=== PATIENT | male | born 1935 | race Caucasian/White ===

== ENCOUNTER 2016-06-08 08:54 | Inpatient (IN) | payer OTHER ==
[2016-06-08] MEDS ORDERED: ASPIRIN 325 MG TAB PO ONE (09:01)
[2016-06-08] MEDS ORDERED: NITROGLYCERINE 2 % OINTMENT PACK TOP ONE (09:01)
[2016-06-08] MEDS ORDERED: HYDROmorphone 1 MG INJECTION IV ONE (09:11)
[2016-06-08] MEDS: NITROGLYCERINE 0.4 MG TAB SL SCH ×2 (09:11→11:13)
[2016-06-08] MEDS ORDERED: MORPHINE 4 MG/ML INJECTION IV ONE (09:23)
[2016-06-08 09:30] LABS: AUTOMATED BASOPHIL 0.8 % (0-2); AUTOMATED EOSINOPHIL 6.1 % (0-5); AUTOMATED LYMPH 20.6 % (17-44); AUTOMATED NEUTROPHIL 62.5 % (45-76); MPV 9.8 fL (7.4-10.4)
[2016-06-08 09:38] LABS: CPK (TOTAL ONLY) 90 IU/L (55-170)
[2016-06-08 09:41] LABS: CALC CORRECTED 9.3 MG/DL (8.4-10.2); CALCIUM 8.8 MG/DL (8.4-10.2); CREATININE 2.4 MG/DL (0.66-1.25); TOTAL PROTEIN 6.2 G/DL (6.3-8.2)
--- NOTE | 2016-06-08 09:44 | EDPRACDOC ---
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 PT HAS SIGNIFICANT CARDIAC HISTORY INCLUDING CABG X 3 AND STENT X 2, PER PIECE OF PAPER PT BROUGHT WITH HIM. PT POOR HISTORIAN AND ARRIVED VIA EMS, SO HPI/PMH DIFFICULT. FAMILY SHOULD ARRIVE SOON. PT DENIES ANY SYMPTOMS NOW AND STATES THAT HIS PAIN WAS RELIEVED AT HOME WITH 1 NITRO. Chest Pain Location: Reports: Substernal Pain Radiation: Reports: None Symptoms Occur: Reports: Suddenly Cardiac Risk Factors: Reports: Hyperlipidemia, Hypertension, Diabetes Cardiac History of: Reports: [place], Stress Test, CABG, Other (PACEMAKER) PE Risk Factors: Reports: None Medications within 24 Hours: Reports: Nitro Prehospital Care: Reports: Monitor Pain Status: No Pain Pain Description: Reports: Sharp, Stabbing Pain Severity: Severe Pain Worsens With: Reports: Nothing Pain Improves With: Reports: Nothing Associated Signs and Symptoms: Reports: None <Justina Maciel - Last Filed: 06/08/16 10:12> - General Information Chief Complaint: Chest Pain Stated Complaint: CHEST PAIN Time Seen by Provider: 06/08/16 08:56 Home Medications: Home Medications Finasteride [Proscar] 5 mg PO DAILY 09/02/12 Nitroglycerin [Nitrostat] 0.4 mg SL Q5M PRN 09/02/12 Oxycodone Immediate Release [Oxycodone Immediate Release (OxyIR)] 5 - 10 mg PO Q6H PRN 03/03/13 Tamsulosin HCl [Flomax] 0.4 mg PO DAILY 03/03/13 Furosemide [Lasix] 80 mg PO BID 03/25/13 HydrALAZINE (Cardiovascular) [Apresoline] 25 mg PO BID 03/25/13 Insulin Glargine,Hum.rec.anlog [Lantus] 50 units SQ HS 03/25/13 Isosorbide Mononitrate [Imdur] 30 mg PO DAILY 03/25/13 Allopurinol [Zyloprim] 100 mg PO BID 04/27/13 Colchicine [Colcrys] 0.3 mg PO DAILY 04/27/13 Gabapentin [Neurontin] 600 mg PO TID 04/27/13 Levetiracetam [Keppra] 500 mg PO BID 30 Days 04/27/13 Omeprazole [Prilosec] 20 mg PO DAILY 04/27/13 Simvastatin [Zocor] 40 mg PO HS 04/27/13 Artificial Tears 1 drop OU TID 07/12/15 Butalbital/Acetaminophen [Bupap 50 mg-300 mg Tablet] 1 - 2 tab PO Q4H PRN Cyclobenzaprine HCl [Flexeril] 10 mg PO Q6H PRN 07/12/15 Humalog Mix 75/25 0 units SQ .SLIDING SCALE 07/12/15 Loratadine [Claritin] 10 mg PO DAILY 07/12/15 Lorazepam [Lorazepam Intensol] 1 mg PO Q4H PRN 07/12/15 Nut.tx.gluc.intoler,Lac-Fr,Soy [Glucerna 1.2 Deandre] 237 ml PO DAILY PRN 07/12/15 Ondansetron HCl [Zofran] 4 - 8 mg PO Q6H PRN 07/12/15 Promethazine HCl 25 mg PO Q6H PRN 07/12/15 Amlodipine [Norvasc] 2.5 mg PO DAILY 06/08/16 Ketoconazole [Nizoral] 1 gm TOP DAILY 06/08/16 Allergies/Adverse Reactions: Allergies Allergy/AdvReac Type Severity Reaction Status Date / Time Penicillins Allergy Unknown Verified 06/08/16 09:08 ED Past Medical History - History Reviewed Yes Nurses notes reviewed and agree except as marked - Patient Medical History Neurological History: Reports: Cerebrovascular Accident (2013, hemorrhagic w/ seizures), Dementia Cardiac History: Reports: Coronary Artery Disease, Atrial Fibrillation, Hypertension, Congestive Heart Failure, Heart Attack (x2 2003), Hypercholesterolemia, Cardiomyopathy Respiratory History: Reports: Pneumonia GI/ History: Reports: Renal Failure, Urinary Tract Infection, Gastroesophageal Reflux Psychological History: Reports: Depression Systemic History: Reports: Diabetes (INSULIN DEPENDANT). Denies: Cancer Surgical History: Reports: Tonsillectomy/Adnoidectomy - Family Medical History Reports: Cancer (FATHER), Stroke (MOTHER), Cardiac Disorders (FATHER, SIBLINGS) - Social Medical History Smoking Status: Never smoker <Justina Maciel - Last Filed: 06/08/16 10:12> EDM Review of Systems - Review of Systems ROS Negative Except as Marked: Yes All systems reviewed and were negative except as marked ROS Unobtainable: Yes Hx Limited due to age/level of understanding of patient Constitutional: No Symptoms Reported Respiratory: No Symptoms Reported Cardiovascular: Chest Pain Gastrointestinal: No Symptoms Reported Neurological: No Symptoms Reported Musculoskeletal: No Symptoms Reported Integumentary: No Symptoms Reported <Justina Maciel - Last Filed: 06/08/16 10:12> - Physical Exam Last recorded Vital Signs: Last Vital Signs Temp 97.9 F 06/08/16 09:04 Pulse 124 H 06/08/16 09:19 Resp 20 06/08/16 09:19 BP 144/60 06/08/16 09:19 Pulse Ox 95 06/08/16 09:19 Oxygen Pulse Oxygen Saturation 95 O2 Device Room Air Oxygen Flow Rate Fraction of Inspired Oxygen ( FIO2) <Zahida Botello - Last Filed: 06/08/16 10:06> - Physical Exam Constitutional: Alert, Distress Oriented to: Time, Person, Place Last recorded Vital Signs: Last Vital Signs Temp 97.9 F 06/08/16 09:04 Pulse 124 H 06/08/16 09:19 Resp 20 06/08/16 09:19 BP 144/60 06/08/16 09:19 Pulse Ox 95 06/08/16 09:19 Oxygen Pulse Oxygen Saturation 95 O2 Device Room Air Oxygen Flow Rate Fraction of Inspired Oxygen ( FIO2) - HEENT Head: Normal Eye Exam: Normal Neck: Normal, Denies Pain, Midline - Respiratory/Cardiovascular Respiratory: Normal - CTA Cardiovascular: Tachycardia - GI Palpation: Normal Tenderness: Non tender - Musculoskeletal Back: Normal Extremities: Normal - Integumentary Skin: Normal Lymphatics: Normal - Neurologic Cerebellar: Unable to Test Mood Description: Anxious, Appropriate Thought: Coherent <Justina Maciel - Last Filed: 06/08/16 10:12> ED Chest Pain Exam - Respiratory/Cardiovascular Respiratory: Normal - CTA Cardiovascular/Chest: Normal Chest Palpation: Normal <Justina Maciel - Last Filed: 06/08/16 10:12> - Results 06/08/16 09:15 06/08/16 09:15 WBC 5.8 xk/uL (3.8-10.8) 06/08/16 09:15 RBC 4.12 xM/uL (4.70-6.10) L 06/08/16 09:15 Hgb 13.2 g/dL (14.0-18.0) L 06/08/16 09:15 Hct 38.6 % (42-52) L 06/08/16 09:15 MCV 94 fL (80-94) 06/08/16 09:15 MCH 32.1 pg (27-32) H 06/08/16 09:15 MCHC 34.3 g/dl (33-36) 06/08/16 09:15 RDW 14.8 % (11.5-14.5) H 06/08/16 09:15 Plt Count 134 xk/uL (130-400) 06/08/16 09:15 MPV 9.8 fL (7.4-10.4) 06/08/16 09:15 Neut % (Auto) 62.5 % (45-76) 06/08/16 09:15 Lymph % (Auto) 20.6 % (17-44) 06/08/16 09:15 Gl[place]ock % (Auto) 10.0 % (3-10) 06/08/16 09:15 Eos % (Auto) 6.1 % (0-5) H 06/08/16 09:15 Baso % (Auto) 0.8 % (0-2) 06/08/16 09:15 Absolute Neuts (auto) 3.60 xk/uL (1.7-8.2) 06/08/16 09:15 Absolute Lymphs (auto) 1.16 xk/uL (0.65-4.75) 06/08/16 09:15 PT 10.8 SEC (9.2-11.2) 06/08/16 09:15 INR 1.1 06/08/16 09:15 APTT 23.6 SEC (22-35) 06/08/16 09:15 Sodium 141 mEq/L (137-146) 06/08/16 09:15 Potassium 3.5 mEq/L (3.5-5.1) 06/08/16 09:15 Chloride 100 mEq/L (98-107) 06/08/16 09:15 Carbon Dioxide 27 mMOL/L (22-33) 06/08/16 09:15 Anion Gap 18 mEq/L (8-16) H 06/08/16 09:15 BUN 32 MG/DL (9-20) H 06/08/16 09:15 Creatinine 2.40 MG/DL (0.66-1.25) H 06/08/16 09:15 Estimated GFR (MDRD) 26 mL/min (>=60) L 06/08/16 09:15 Glucose 76 MG/DL (70-99) 06/08/16 09:15 Calculated Osmolality 277 MOs/Kg (270-290) 06/08/16 09:15 Calcium 8.8 MG/DL (8.4-10.2) 06/08/16 09:15 Corrected Calcium 9.3 MG/DL (8.4-10.2) 06/08/16 09:15 Total Bilirubin 0.7 MG/DL (0.2-1.3) 06/08/16 09:15 AST 24 IU/L (17-59) 06/08/16 09:15 ALT 31 IU/L (21-72) 06/08/16 09:15 Alkaline Phosphatase 72 IU/L (50-160) 06/08/16 09:15 Total Creatine Kinase 90 IU/L (55-170) 06/08/16 09:15 Troponin I 0.15 ng/mL (<.04) 06/08/16 09:15 Vkj-F-Eszhavbkovg Pept 3800 pg/mL (0-1800) H 06/08/16 09:15 Total Protein 6.2 G/DL (6.3-8.2) L 06/08/16 09:15 Albumin 3.5 G/DL (3.5-5.0) 06/08/16 09:15 Lab Results 06/08/16 06/08/16 06/08/16 09:15 09:15 09:15 WBC 5.8 RBC 4.12 L Hgb 13.2 L Hct 38.6 L MCV 94 MCH 32.1 H MCHC 34.3 RDW 14.8 H Plt Count 134 MPV 9.8 Neut % (Auto) 62.5 Lymph % (Auto) 20.6 Glascock % (Auto) 10.0 Eos % (Auto) 6.1 H Baso % (Auto) 0.8 Absolute Neuts (auto) 3.60 Absolute Lymphs (auto) 1.16 PT 10.8 INR 1.1 APTT 23.6 Sodium Potassium Chloride Carbon Dioxide Anion Gap BUN Creatinine Estimated GFR (MDRD) Glucose Calculated Osmolality Calcium Corrected Calcium Total Bilirubin AST ALT Alkaline Phosphatase Total Creatine Kinase 90 Troponin I Bte-M-Ypibicakgdo Pept 3800 H Total Protein Albumin 06/08/16 09:15 WBC RBC Hgb Hct MCV MCH MCHC RDW Plt Count MPV Neut % (Auto) Lymph % (Auto) [place]asc[place] % (Auto) Eos % (Auto) Baso % (Auto) Absolute Neuts (auto) Absolute Lymphs (auto) PT INR APTT Sodium 141 Potassium 3.5 Chloride 100 Carbon Dioxide 27 Anion Gap 18 H BUN 32 H Creatinine 2.40 H Estimated GFR (MDRD) 26 L Glucose 76 Calculated Osmolality 277 Calcium 8.8 Corrected Calcium 9.3 Total Bilirubin 0.7 AST 24 ALT 31 Alkaline Phosphatase 72 Total Creatine Kinase Troponin I 0.15 Aeh-G-Dvjthrysvnu Pept Total Protein 6.2 L Albumin 3.5 Laboratory Results - last 24 hr 06/08/16 06/08/16 06/08/16 09:15 09:15 09:15 WBC 5.8 RBC 4.12 L Hgb 13.2 L Hct 38.6 L MCV 94 MCH 32.1 H MCHC 34.3 RDW 14.8 H Plt Count 134 MPV 9.8 Neut % (Auto) 62.5 Lymph % (Auto) 20.6 [place] % (Auto) 10.0 Eos % (Auto) 6.1 H Baso % (Auto) 0.8 Absolute Neuts (auto) 3.60 Absolute Lymphs (auto) 1.16 PT 10.8 INR 1.1 APTT 23.6 Sodium 141 Potassium 3.5 Chloride 100 Carbon Dioxide 27 Anion Gap 18 H BUN 32 H Creatinine 2.40 H Estimated GFR (MDRD) 26 L Glucose 76 Calculated Osmolality 277 Calcium 8.8 Corrected Calcium 9.3 Total Bilirubin 0.7 AST 24 ALT 31 Alkaline Phosphatase 72 Total Creatine Kinase Troponin I 0.15 Ufk-A-Wbjgwakbqub Pept Total Protein 6.2 L Albumin 3.5 06/08/16 09:15 WBC RBC Hgb Hct MCV MCH MCHC RDW Plt Count MPV Neut % (Auto) Lymph % (Auto) [place] % (Auto) Eos % (Auto) Baso % (Auto) Absolute Neuts (auto) Absolute Lymphs (auto) PT INR APTT Sodium Potassium Chloride Carbon Dioxide Anion Gap BUN Creatinine Estimated GFR (MDRD) Glucose Calculated Osmolality Calcium Corrected Calcium Total Bilirubin AST ALT Alkaline Phosphatase Total Creatine Kinase 90 Troponin I Asq-J-Kfbqkaoakjq Pept 3800 H Total Protein Albumin Laboratory Results 06/08/16 09:15 06/08/16 09:15 <Zahida Botello - Last Filed: 06/08/16 10:06> - Action ASA given in the ED: No Aspirin therapy held due to: Other-specify below* (PT REFUSED ASA, DESPITE SEVERAL ATTEMPTS OF ENCOURAGEMENT; STATES "[place] SAID IT WAS BAD FOR MY HEART") - Results 06/08/16 09:15 06/08/16 09:15 WBC 5.8 xk/uL (3.8-10.8) 06/08/16 09:15 RBC 4.12 xM/uL (4.70-6.10) L 06/08/16 09:15 Hgb 13.2 g/dL (14.0-18.0) L 06/08/16 09:15 Hct 38.6 % (42-52) L 06/08/16 09:15 MCV 94 fL (80-94) 06/08/16 09:15 MCH 32.1 pg (27-32) H 06/08/16 09:15 MCHC 34.3 g/dl (33-36) 06/08/16 09:15 RDW 14.8 % (11.5-14.5) H 06/08/16 09:15 Plt Count 134 xk/uL (130-400) 06/08/16 09:15 MPV 9.8 fL (7.4-10.4) 06/08/16 09:15 Neut % (Auto) 62.5 % (45-76) 06/08/16 09:15 Lymph % (Auto) 20.6 % (17-44) 06/08/16 09:15 [place]ock % (Auto) 10.0 % (3-10) 06/08/16 09:15 Eos % (Auto) 6.1 % (0-5) H 06/08/16 09:15 Baso % (Auto) 0.8 % (0-2) 06/08/16 09:15 Absolute Neuts (auto) 3.60 xk/uL (1.7-8.2) 06/08/16 09:15 Absolute Lymphs (auto) 1.16 xk/uL (0.65-4.75) 06/08/16 09:15 Sodium 141 mEq/L (137-146) 06/08/16 09:15 Potassium 3.5 mEq/L (3.5-5.1) 06/08/16 09:15 Chloride 100 mEq/L (98-107) 06/08/16 09:15 Carbon Dioxide 27 mMOL/L (22-33) 06/08/16 09:15 Anion Gap 18 mEq/L (8-16) H 06/08/16 09:15 BUN 32 MG/DL (9-20) H 06/08/16 09:15 Creatinine 2.40 MG/DL (0.66-1.25) H 06/08/16 09:15 Estimated GFR (MDRD) 26 mL/min (>=60) L 06/08/16 09:15 Glucose 76 MG/DL (70-99) 06/08/16 09:15 Calculated Osmolality 277 MOs/Kg (270-290) 06/08/16 09:15 Calcium 8.8 MG/DL (8.4-10.2) 06/08/16 09:15 Corrected Calcium 9.3 MG/DL (8.4-10.2) 06/08/16 09:15 Total Bilirubin 0.7 MG/DL (0.2-1.3) 06/08/16 09:15 AST 24 IU/L (17-59) 06/08/16 09:15 ALT 31 IU/L (21-72) 06/08/16 09:15 Alkaline Phosphatase 72 IU/L (50-160) 06/08/16 09:15 Total Creatine Kinase 90 IU/L (55-170) 06/08/16 09:15 Total Protein 6.2 G/DL (6.3-8.2) L 06/08/16 09:15 Albumin 3.5 G/DL (3.5-5.0) 06/08/16 09:15 Lab Results 06/08/16 06/08/16 06/08/16 09:15 09:15 09:15 WBC 5.8 RBC 4.12 L Hgb 13.2 L Hct 38.6 L MCV 94 MCH 32.1 H MCHC 34.3 RDW 14.8 H Plt Count 134 MPV 9.8 Neut % (Auto) 62.5 Lymph % (Auto) 20.6 [place]ascock % (Auto) 10.0 Eos % (Auto) 6.1 H Baso % (Auto) 0.8 Absolute Neuts (auto) 3.60 Absolute Lymphs (auto) 1.16 Sodium 141 Potassium 3.5 Chloride 100 Carbon Dioxide 27 Anion Gap 18 H BUN 32 H Creatinine 2.40 H Estimated GFR (MDRD) 26 L Glucose 76 Calculated Osmolality 277 Calcium 8.8 Corrected Calcium 9.3 Total Bilirubin 0.7 AST 24 ALT 31 Alkaline Phosphatase 72 Total Creatine Kinase 90 Total Protein 6.2 L Albumin 3.5 Laboratory Results - last 24 hr 06/08/16 06/08/16 06/08/16 09:15 09:15 09:15 WBC 5.8 RBC 4.12 L Hgb 13.2 L Hct 38.6 L MCV 94 MCH 32.1 H MCHC 34.3 RDW 14.8 H Plt Count 134 MPV 9.8 Neut % (Auto) 62.5 Lymph % (Auto) 20.6 [place]ock % (Auto) 10.0 Eos % (Auto) 6.1 H Baso % (Auto) 0.8 Absolute Neuts (auto) 3.60 Absolute Lymphs (auto) 1.16 Sodium 141 Potassium 3.5 Chloride 100 Carbon Dioxide 27 Anion Gap 18 H BUN 32 H Creatinine 2.40 H Estimated GFR (MDRD) 26 L Glucose 76 Calculated Osmolality 277 Calcium 8.8 Corrected Calcium 9.3 Total Bilirubin 0.7 AST 24 ALT 31 Alkaline Phosphatase 72 Total Creatine Kinase 90 Total Protein 6.2 L Albumin 3.5 Laboratory Results 06/08/16 09:15 06/08/16 09:15 - EKG EKG #1 EKG Time: 09:00 -: Yes EKG interpreted by me Rate: bpm: 117 [place]: Normal Rhythm: Afib Block: None Hypertrophy: None ST: Normal Comparison: 12/02/15 <Justina Maciel - Last Filed: 06/08/16 10:12> - Departure Yes I personally saw and evaluated the patient. Disposition: Admit IP To This Hospital Education/Counseling Given To: Patient Education/Counseling Given Regarding: Diagnosis, Treatment Decision to Admit Time: 10:07 Decision to admit date: 12/30/16 Decision to admit: from ED - Physician Consulted Hospitalist Provider Called: James Ghosh <Zahida Botello - Last Filed: 06/08/16 10:06> - Departure Disposition: Admit IP To This Hospital <Justina Maciel - Last Filed: 06/08/16 10:12> - Departure Condition: Fair Final Diagnosis: Acute coronary syndrome, CRI (chronic renal insufficiency), [place] troponin Instructions: Chest Pain (ED) Referrals: [facility] [Primary Care Provider] - One Week
[2016-06-08 09:56] LABS: PARTIAL THROMB. TIME 23.6 SEC (22-35); PT-INR 1.1
--- NOTE | 2016-06-08 10:05 | DIRPT ---
CLINICAL DATA: Chest pain and shortness of Breath EXAM: PORTABLE CHEST - 1 VIEW COMPARISON: 12/02/2015 FINDINGS: Cardiac shadow is stable. Postoperative changes are again seen. A defibrillator is noted. Lungs are well aerated bilaterally. Some minimal atelectatic changes are noted in the right lung base. No focal confluent infiltrate is seen. IMPRESSION: Minimal right basilar atelectasis. Electronically Signed By: Danielito Cooley M.D. On: 06/08/2016 10:02
--- NOTE | 2016-06-08 10:22 | HISTPHYS ---
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 PT HAS SIGNIFICANT CARDIAC HISTORY INCLUDING CABG X 3 AND STENT X 2, PER PIECE OF PAPER PT BROUGHT WITH HIM. PT POOR HISTORIAN AND ARRIVED VIA EMS, SO HPI/PMH DIFFICULT. FAMILY SHOULD ARRIVE SOON. PT DENIES ANY SYMPTOMS NOW AND STATES THAT HIS PAIN WAS RELIEVED AT HOME WITH 1 NITRO. Chest Pain Location: Reports: Substernal Pain Radiation: Reports: None Symptoms Occur: Reports: Suddenly Cardiac Risk Factors: Reports: Hyperlipidemia, Hypertension, Diabetes Cardiac History of: Reports: [place], Stress Test, CABG, Other (PACEMAKER) PE Risk Factors: Reports: None Medications within 24 Hours: Reports: Nitro Prehospital Care: Reports: Monitor Pain Status: No Pain Pain Description: Reports: Sharp, Stabbing Pain Severity: Severe Pain Worsens With: Reports: Nothing Pain Improves With: Reports: Nothing Associated Signs and Symptoms: Reports: None - Medical History Cardiac History: Reports: Coronary Artery Disease, Atrial Fibrillation, Hypertension, Congestive Heart Failure, Heart Attack (x2 2003), Hypercholesterolemia, Internal Defibrillator, Cardiomyopathy, Other (PAD) Respiratory History: Reports: Pneumonia GI/ History: Reports: Renal Failure (Chronic), Urinary Tract Infection, Gastroesophageal Reflux, BPH Systemic History: Reports: Diabetes (INSULIN DEPENDANT). Denies: Cancer Neurological History: Reports: Cerebrovascular Accident (2013, hemorrhagic w/ seizures), Dementia Psychological History: Reports: Depression - Surgical History Reports: CABG, Tonsillectomy/Adnoidectomy, Other (Pacemaker/AICD implantation) - Medictions/Allergies Allergies Penicillins Allergy (Verified 06/08/16 09:08) Unknown told not to ever take it Current Medication List: Reviewed Home Medications Finasteride [Proscar] 5 mg PO DAILY 09/02/12 Nitroglycerin [Nitrostat] 0.4 mg SL Q5M PRN 09/02/12 Oxycodone Immediate Release [Oxycodone Immediate Release (OxyIR)] 5 - 10 mg PO Q6H PRN 03/03/13 Tamsulosin HCl [Flomax] 0.4 mg PO DAILY 03/03/13 Furosemide [Lasix] 80 mg PO BID 03/25/13 HydrALAZINE (Cardiovascular) [Apresoline] 25 mg PO BID 03/25/13 Insulin Glargine,Hum.rec.anlog [Lantus] 50 units SQ HS 03/25/13 Isosorbide Mononitrate [Imdur] 30 mg PO DAILY 03/25/13 Allopurinol [Zyloprim] 100 mg PO BID 04/27/13 Colchicine [Colcrys] 0.3 mg PO DAILY 04/27/13 Gabapentin [Neurontin] 600 mg PO TID 04/27/13 Levetiracetam [Keppra] 500 mg PO BID 30 Days 04/27/13 Omeprazole [Prilosec] 20 mg PO DAILY 04/27/13 Simvastatin [Zocor] 40 mg PO HS 04/27/13 Artificial Tears 1 drop OU TID 07/12/15 Butalbital/Acetaminophen [Bupap 50 mg-300 mg Tablet] 1 - 2 tab PO Q4H PRN Cyclobenzaprine HCl [Flexeril] 10 mg PO Q6H PRN 07/12/15 Humalog Mix 75/25 0 units SQ .SLIDING SCALE 07/12/15 Loratadine [Claritin] 10 mg PO DAILY 07/12/15 Lorazepam [Lorazepam Intensol] 1 mg PO Q4H PRN 07/12/15 Nut.tx.gluc.intoler,Lac-Fr,Soy [Glucerna 1.2 Deandre] 237 ml PO DAILY PRN 07/12/15 Ondansetron HCl [Zofran] 4 - 8 mg PO Q6H PRN 07/12/15 Promethazine HCl 25 mg PO Q6H PRN 07/12/15 Amlodipine [Norvasc] 2.5 mg PO DAILY 06/08/16 Ketoconazole [Nizoral] 1 gm TOP DAILY 06/08/16 - Family History Reports: Cancer (FATHER), Stroke (MOTHER), Cardiac Disorders (FATHER, SIBLINGS) - Social History Travel Outside of [place] in the Last 3 Months?: No Smoking Status: Never smoker Social History: Denies: Alcohol Use - Review of Systems Yes Review of systems cannot be obtained due to the patient's medical condition Constitutional: No Symptoms Reported - Eyes No Symptoms Reported (No blurry vision, visual changes, eye pain, or eye redness.) - Ears No Symptoms Reported (No ear pain or discharge) - Nose No Symptoms Reported (No nasal discharge/congestion or bleeding) - Mouth Mouth: No Symptoms Reported (No oropharyngeal lesions or erythema) - Throat/Neck No Symptoms Reported (No throat pain or swelling.No oropharyngeal lesions or erythema.) - Respiratory No Symptoms Reported (No cough, wheezing, or shortness of breath.) - Cardiovascular No Symptoms Reported (No chest pain or palpitations.) - Neurological No Symptoms Reported (No headache, dizziness, seizures, or focal weakness.) - Integumentary No Symptoms Reported (no rashes or lesions) - Allergic/Immunologic No Symptoms Reported (no rashes or lesions) - Hematologic No Symptoms Reported (No chronic anemia, bleeding, or easy bruising.) - Endocrine No Symptoms Reported (No thyroid issues, polyuria, or polydipsia.) - Psychiatric No Symptoms Reported (Fully oriented, with normal and appropriate affect.) - Physical Exam Constitutional: Alert, Distress Oriented to: Time, Person, Place Exam: Last Vital Signs Temp 97.9 F 06/08/16 09:04 Pulse 124 H 06/08/16 09:19 Resp 20 06/08/16 09:19 BP 144/60 06/08/16 09:19 Pulse Ox 95 06/08/16 09:19 Intake & Output 06/07/16 06/08/16 06/08/16 23:59 07:59 15:59 Patient's weight 200 lb - HEENT Head: Normal Eye: Normal Oropharynx: Normal (Pharynx: Moist without exudate,Gums-no swelling, No oropharyngeal lesions or erythema, Mucous membranes are dry.) Tympanic Membrane: Normal (No discharge) ENT EAC: Normal (No oropharyngeal lesions or erythema. Mucous membranes are dry. ) TMJ: Normal Nose: No Symptoms Reported (Nares patent, without discharge or bleeding.) - Respiratory/Cardiovascular Respiratory: Normal - CTA Cardiovascular: Normal (RRR , Normal S1, S2. No murmurs, rubs, or gallops. PMI non-displaced. Carotids: no carotid bruits. No bradycardia or tachycardia. DP pulses 2+ bilaterally.) - GI Auscultation: Normal (NABS) Palpation: Normal Tenderness: Non tender Chou's Sign: Negative - Musculoskeletal Back: Normal Extremities: Normal - Integumentary Skin: Normal Lymphatics: Normal - Neurologic Memory Impaired: Normal Motor Function: Normal (Motor 5/5 throughout. Normal tone, Pulses 2+ No cyanosis or edema, FROM) Cranial Nerve: Normal (CN II-XXII intact sensation, strength 5/5) Cerebellar: Unable to Test Mood Description: Anxious, Appropriate Thought: Coherent Perception: Normal (Normal and appropriate affect) - Focused CV Perfusion Exam Vital Signs: Last Vital Signs Temp 97.9 F 06/08/16 09:04 Pulse 124 H 06/08/16 09:19 Resp 20 06/08/16 09:19 BP 144/60 06/08/16 09:19 Pulse Ox 95 06/08/16 09:19 - Lab Results 06/08/16 09:15 06/08/16 09:15 Laboratory Tests 06/08/16 06/08/16 06/08/16 09:15 09:15 09:15 INR 1.1 Troponin I 0.15 Wux-H-Bwccyyrjyll Pept 3800 H Laboratory Tests 07/12/15 10/20/15 12/02/15 12:10 11:22 10:45 Creatinine 2.20 H 1.90 H 2.10 H 04/24/16 05/07/16 06/08/16 14:07 10:47 09:15 Creatinine 2.70 H 2.60 H 2.40 H PORTABLE CHEST - 1 VIEW COMPARISON: 12/02/2015 FINDINGS: Cardiac shadow is stable. Postoperative changes are again seen. A defibrillator is noted. Lungs are well aerated bilaterally. Some minimal atelectatic changes are noted in the right lung base. No focal confluent infiltrate is seen. IMPRESSION: Minimal right basilar atelectasis. Echocardiogram 03/16/2013 LV size normal with severe concentric LVH EF between 20 and 25% Moderately dilated left atrium - Assessment (1) Acute coronary syndrome I24.9 - ACUTE ISCHEMIC HEART DISEASE, UNSPECIFIED Acute (2) CRI (chronic renal insufficiency) N18.9 - CHRONIC KIDNEY DISEASE, UNSPECIFIED Chronic (3) CAD (coronary artery disease) I25.10 - ATHSCL HEART DISEASE OF [place] CORONARY ARTERY W/O ANG PCTRS Acute (4) Acute on chronic kidney failure N17.9 - ACUTE KIDNEY FAILURE, UNSPECIFIED; N18.9 - CHRONIC KIDNEY DISEASE, UNSPECIFIED Acute (5) Atrial fibrillation I48.91 - UNSPECIFIED ATRIAL FIBRILLATION Chronic (6) Cardiomyopathy I42.9 - CARDIOMYOPATHY, UNSPECIFIED Chronic (7) ICD (implantable cardioverter-defibrillator) in place Z95.810 - PRESENCE OF AUTOMATIC (IMPLANTABLE) CARDIAC DEFIBRILLATOR Chronic (8) 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
[2016-06-08 10:48] LABS: LEUKOCYTES/URINE NEG (NEGATIVE); NITRITE/URINE NEG (NEGATIVE); URINE OCCULT BLOOD 3+ (NEG/TRACE)
[2016-06-08] MEDS ORDERED: NITROGLYCERINE 0.4 MG TAB SL PRN (10:57)
[2016-06-08] MEDS ORDERED: MORPHINE 2 MG/ML INJECTION IV PRN (10:58)
[2016-06-08] MEDS ORDERED: Pharmacy Order Set Alert SCH ×2 (11:00)
[2016-06-08] MEDS ORDERED: Enoxaparin 1 mg per kg per dose SQ SCH (11:00)
[2016-06-08 11:07] LABS: RBC/URINE 40-50 (0-2)
[2016-06-08] MEDS ORDERED: ALBUTEROL 0.083% 3 ML NEB NEB PRN (11:11)
[2016-06-08] MEDS ORDERED: SODIUM CHLORIDE 0.9% 3 ML FLUSH FLUSH PRN (11:11)
[2016-06-08] MEDS ORDERED: GLUCOSE (ORAL GEL) 15 GM TUBE PO PRN (11:11)
[2016-06-08] MEDS ORDERED: GLUCAGON 1 MG VIAL SQ PRN (11:11)
[2016-06-08] MEDS ORDERED: DEXTROSE 25 GM/50 ML PFS IV PRN (11:11)
[2016-06-08] MEDS ORDERED: LORAZEPAM 1 MG PO PRN (11:13)
[2016-06-08] MEDS ORDERED: CYCLOBENZAPRINE 10 MG TAB PO PRN (11:13)
[2016-06-08] MEDS ORDERED: BUTALBITAL PO PRN (11:13)
[2016-06-08] MEDS ORDERED: Non-Formulary Medication ITEM (Ondansetron Hcl [Zofran] 4 MG) PO PRN (11:13)
[2016-06-08] MEDS ORDERED: GLUCERNA VANILLA PO PRN (11:13)
[2016-06-08] MEDS ORDERED: ACETAMINOPHEN PO PRN (11:13)
[2016-06-08] MEDS ORDERED: OXYCODONE HCL 5 MG TABLET PO PRN (11:13)
[2016-06-08] MEDS ORDERED: [UNRECOGNIZED DRUG - OTHER] PO PRN (11:13)
[2016-06-08] MEDS ORDERED: METOPROLOL TARTRATE 25 MG TAB ONE (11:19)
[2016-06-08] MEDS ORDERED: PROMETHAZINE 25 MG/ML VIAL IV PRN (11:19)
[2016-06-08] MEDS ORDERED: Aluminum;Magnesium;Simethicone 30 ML UDC PO PRN (11:19)
[2016-06-08] MEDS ORDERED: MAGNESIUM HYDROXIDE 30 ML BOTTLE PO PRN (11:19)
[2016-06-08] MEDS ORDERED: ACETAMINOPHEN 325 MG/TAB TABLET PO PRN (11:19)
[2016-06-08] MEDS ORDERED: BISACODYL 10 MG SUPP PR PRN (11:19)
[2016-06-08] MEDS ORDERED: ACETAMINOPHEN 650 MG SUPP PR PRN (11:19)
[2016-06-08] MEDS ORDERED: TUSSIONEX 5 ML ORAL SYRINGE PO PRN (11:19)
[2016-06-08] MEDS ORDERED: GUAIFEN 100 MG-DEXTROMETH 10 MG PER 5 ML PO PRN (11:19)
[2016-06-08] MEDS ORDERED: METOPROLOL 5 MG/5 ML SDV IV PRN (11:20)
[2016-06-08] MEDS: METOPROLOL TARTRATE 25 MG TAB PO SCH ×2 (11:24→22:45)
[2016-06-08] MEDS ORDERED: Fioricet Tablet PO PRN (11:40)
[2016-06-08] MEDS ORDERED: ONDANSETRON HCL 4 MG ODT TAB PO PRN (11:43)
[2016-06-08] MEDS ORDERED: LORAZEPAM 1 MG TAB PO PRN (11:44)
[2016-06-08] MEDS ORDERED: GLARGINE INSULIN (LANTUS) 100 UNITS/ML PEN SQ SCH (12:00)
[2016-06-08] MEDS ORDERED: KETOCONAZOLE 2% CREAM 15 GM TUBE TOP SCH (12:00)
[2016-06-08] MEDS ORDERED: ARTIFICIAL TEARS OPH SOLN 15 ML OU SCH (12:00)
[2016-06-08] MEDS: REGULAR INSULIN 100 UNITS/ML - 3 ML VIAL SQ SCH ×3 (12:19→22:03)
[2016-06-08] MEDS ORDERED: Non-Formulary Medication ITEM (Gabapentin [Neurontin] 600 MG) PO SCH (14:00)
[2016-06-08] MEDS: Albuterol/Ipratropium Neb 3 ML NEB NEB SCH ×2 (14:26→20:32)
[2016-06-08] MEDS ORDERED: Vaccine Screening Complete SCH (15:00)
[2016-06-08] MEDS: GABAPENTIN 300 MG CAP PO SCH ×2 (15:01→22:45)
[2016-06-08] MEDS: ARTIFICIAL TEARS OPH SOLN 15 ML OU SCH ×2 (15:07→22:46)
[2016-06-08] MEDS: FUROSEMIDE 80 MG TAB PO SCH (16:22)
[2016-06-08] MEDS: SODIUM CHLORIDE 0.9% 3 ML FLUSH FLUSH SCH (16:24)
[2016-06-08] MEDS ORDERED: LEVETIRACETAM 100 MG/ML ORAL SOLN PO SCH (21:00)
[2016-06-08] MEDS ORDERED: INSULIN GLARGINE HUM REC ANLOG 50 UNIT SQ SCH (21:00)
[2016-06-08] MEDS: CHLORHEXIDINE (HIBICLENS) 4 OZ BOTTLE TOP SCH (22:06)
[2016-06-08] MEDS: GLARGINE INSULIN (LANTUS) 100 UNITS/ML PEN SQ SCH (22:08)
[2016-06-08] MEDS: LEVETIRACETAM 250 MG TAB PO SCH (22:44)
[2016-06-08] MEDS: hydrALAZINE 25 MG TAB PO SCH (22:44)
[2016-06-08] MEDS: ALLOPURINOL 100 MG TAB PO SCH (22:45)
[2016-06-08] MEDS: SIMVASTATIN 40 MG TAB PO SCH (22:45)
[2016-06-09 01:59] LABS: MPV 10.1 fL (7.4-10.4)
[2016-06-09 02:08] LABS: BLOOD UREA NITROGEN 37 MG/DL (9-20); CALCIUM 8.3 MG/DL (8.4-10.2); CALCULATED OSMOLALITY 276 MOs/Kg (270-290); CHLORIDE 100 mEq/L (98-107); GLUCOSE 77 MG/DL (70-99); LDL (calc.) 57.4 MG/DL (<100); SODIUM LEVEL 139 mEq/L (137-146); VLDL (calc.) 43.6 MG/DL (5-40)
[2016-06-09] MEDS: Albuterol/Ipratropium Neb 3 ML NEB NEB SCH ×4 (02:28→19:10)
[2016-06-09] MEDS: REGULAR INSULIN 100 UNITS/ML - 3 ML VIAL SQ SCH ×4 (05:47→22:19)
[2016-06-09] MEDS: ARTIFICIAL TEARS OPH SOLN 15 ML OU SCH ×3 (05:48→22:23)
[2016-06-09] MEDS: PANTOPRAZOLE 40 MG TAB PO SCH (05:49)
[2016-06-09] MEDS: GABAPENTIN 300 MG CAP PO SCH ×3 (05:49→22:25)
[2016-06-09] MEDS: SODIUM CHLORIDE 0.9% 3 ML FLUSH FLUSH SCH ×2 (05:52→17:43)
[2016-06-09] MEDS ORDERED: ISOSORBIDE MONONITRATE 60 MG TAB PO SCH (06:00)
[2016-06-09] MEDS ORDERED: SODIUM CHLORIDE 0.9% 10 ML FLUSH FLUSH ONE (08:00)
[2016-06-09] MEDS ORDERED: REGADENOSON 0.4 MG/5 ML SYRINGE IV ONE (08:00)
[2016-06-09] MEDS: COLCHICINE 0.6 MG TAB PO SCH (08:03)
[2016-06-09] MEDS: LEVETIRACETAM 250 MG TAB PO SCH ×2 (08:05→22:24)
[2016-06-09] MEDS: AMLODIPINE 2.5 MG TAB PO SCH (08:06)
[2016-06-09] MEDS: TAMSULOSIN HCL 0.4 MG CAP PO SCH (08:06)
[2016-06-09] MEDS: hydrALAZINE 25 MG TAB PO SCH ×2 (08:06→22:26)
[2016-06-09] MEDS: METOPROLOL TARTRATE 25 MG TAB PO SCH ×2 (08:06→22:30)
[2016-06-09] MEDS: FINASTERIDE 5 MG TAB PO SCH (08:07)
[2016-06-09] MEDS: ALLOPURINOL 100 MG TAB PO SCH ×2 (08:07→22:26)
[2016-06-09] MEDS: FUROSEMIDE 80 MG TAB PO SCH ×2 (08:09→17:00)
[2016-06-09] MEDS: KETOCONAZOLE 2% CREAM 15 GM TUBE TOP SCH (08:09)
[2016-06-09] MEDS: Loratadine 10 MG TAB PO SCH (08:09)
--- NOTE | 2016-06-09 08:29 | DIRPT ---
CLINICAL DATA: Pneumonia. EXAM: PORTABLE CHEST 1 VIEW COMPARISON: June 08, 2016. FINDINGS: Stable cardiomegaly. Sternotomy wires are noted. Right-sided pacemaker is unchanged in position. No pneumothorax or significant pleural effusion is noted. Left lung is clear. Stable minimal right basilar subsegmental atelectasis or pneumonia. IMPRESSION: Stable minimal right basilar subsegmental atelectasis or pneumonia. Electronically Signed By: Elie Parr Jr, M.D. On: 06/09/2016 08:27
[2016-06-09] MEDS ORDERED: Non-Formulary Medication ITEM (Omeprazole 20 MG) PO SCH (09:00)
--- NOTE | 2016-06-09 10:44 | PCM.CARDCO ---
Consultation Date: 06/09/16 Requesting Physician: Brant Martínez Director Shopper Marketing: Edi Macias Consult Reason: Chest Pain - History of Present Illness Patient is an 81 years old gentleman with ischemic cardiomyopathy he also got history of CVA as well as some dementia. History is very difficult to obtain from him he apparently presented to the emergency with chief complaint of palpitations he also complained of having chest pain. He is supposed to have a stress test done today however his biochemical markers namely troponin I became abnormal and I was asked to see him. He also does have some chronic kidney dysfunction as well as paroxysmal atrial fibrillation and he is actually in atrial fibrillation today. Again is very difficult to obtain history from him he does complain of had being some chest pain does not have any right now but he can't give me any details about this. He clearly states that palpitations was the leading complained that he has had. He is followed by group in [place]. Apparently 3 or 4 weeks ago he was there and check was done he was fine to be okay from what I can understand he did have his defibrillator checked then this is a [employer] device. At the moment of my interview he is asymptomatic. He knows where he is he is not initially sure why he is in the hospital. Chief Complaint: Shortness of breath and substernal chest pain - Past Medical and Surgical History Cardiac History: Reports: Hypertension, Congestive Heart Failure, Heart Attack ( x2 2004), CABG (x3), Cardiomyopathy (Ejection fraction 20% to 2013) Respiratory History: Reports: Pneumonia GI/ History: Reports: Renal Failure (Chronic renal insufficency), Urinary Tract Infection Musculoskeletal History: Reports: Gout Psychological History: Reports: Depression Neurological History: Reports: Cerebrovascular Accident (2013, hemorrhagic w/ seizures), Dementia Past Surgical History: Reports: CABG (x3), Tonsillectomy/Adnoidectomy Allergies Penicillins Allergy (Verified 06/08/16 13:39) Unknown told not to ever take it Home Medications Finasteride [Proscar] 5 mg PO DAILY 09/02/12 Nitroglycerin [Nitrostat] 0.4 mg SL Q5M PRN 09/02/12 Oxycodone Immediate Release [Oxycodone Immediate Release (OxyIR)] 5 - 10 mg PO Q6H PRN 03/03/13 Tamsulosin HCl [Flomax] 0.4 mg PO DAILY 03/03/13 Furosemide [Lasix] 80 mg PO BID 03/25/13 HydrALAZINE (Cardiovascular) [Apresoline] 25 mg PO BID 03/25/13 Insulin Glargine,Hum.rec.anlog [Lantus] 50 units SQ HS 03/25/13 Allopurinol [Zyloprim] 100 mg PO BID 04/27/13 Colchicine [Colcrys] 0.3 mg PO DAILY 04/27/13 Gabapentin [Neurontin] 600 mg PO TID 04/27/13 Levetiracetam [Keppra] 500 mg PO BID 30 Days 04/27/13 Omeprazole [Prilosec] 20 mg PO DAILY 04/27/13 Simvastatin [Zocor] 40 mg PO HS 04/27/13 Artificial Tears 1 drop OU TID 07/12/15 Butalbital/Acetaminophen [Bupap 50 mg-300 mg Tablet] 1 - 2 tab PO Q4H PRN Cyclobenzaprine HCl [Flexeril] 10 mg PO Q6H PRN 07/12/15 Humalog Mix 75/25 0 units SQ .SLIDING SCALE 07/12/15 Loratadine [Claritin] 10 mg PO DAILY 07/12/15 Lorazepam [Lorazepam Intensol] 1 mg PO Q4H PRN 07/12/15 Nut.tx.gluc.intoler,Lac-Fr,Soy [Glucerna 1.2 Deandre] 237 ml PO DAILY PRN 07/12/15 Ondansetron HCl [Zofran] 4 - 8 mg PO Q6H PRN 07/12/15 Promethazine HCl 25 mg PO Q6H PRN 07/12/15 Amlodipine [Norvasc] 2.5 mg PO DAILY 06/08/16 Ketoconazole [Nizoral] 1 gm TOP DAILY 06/08/16 - Social History Smoking Status: Current status unknown - Family History Reports: Cancer (FATHER), Stroke (MOTHER), Cardiac Disorders (FATHER, SIBLINGS) - Review of Systems Constitutional: No Symptoms Reported Negative except as described per history of present illness - Physical Exam Constitutional: Alert, Distress Oriented to: Time, Person, Place Exam: Last Vital Signs Temp 97.8 F 06/09/16 10:00 Pulse 81 06/09/16 10:00 Resp 20 06/09/16 10:00 BP 109/59 L 06/09/16 10:00 Pulse Ox 96 06/09/16 10:00 Intake & Output 06/08/16 06/09/16 06/09/16 23:59 07:59 15:59 Intake Total 360 120 360 Output Total 700 525 250 Balance -340 -405 110 Patient's weight 95.209 kg - HEENT Head: Normal Eye: Normal Oropharynx: Normal (Pharynx: Moist without exudate,Gums-no swelling, No oropharyngeal lesions or erythema, Mucous membranes are dry.) Tympanic Membrane: Normal (No discharge) ENT EAC: Normal (No oropharyngeal lesions or erythema. Mucous membranes are dry. ) TMJ: Normal Nose: No Symptoms Reported (Nares patent, without discharge or bleeding.) - Respiratory/Cardiovascular Respiratory: Normal - CTA - GI Auscultation: Normal (NABS) Palpation: Normal Tenderness: Non tender - Musculoskeletal Back: Normal Extremities: Normal - Integumentary Skin: Normal Lymphatics: Normal - Neurologic Memory Impaired: Normal Cerebellar: Unable to Test Mood Description: Anxious, Appropriate Thought: Coherent Perception: Normal (Normal and appropriate affect) - Other Exam Other Exam Findings: General Appearance: Well developed. Well nourished. In no acute distress. Lungs: Chest was not overinflated. Clear to auscultation. Cardiovascular: Jugular Venous Distention: JVD not increased. Heart Rate And Rhythm: Irregularly irregular. Heart Sounds: Normal. Murmurs: No murmurs were heard. Carotid Arteries: Carotid pulses were normal. No bruit in the carotid artery. Edema: Not present. Lower extremities pulses normal (including femoral popliteal and dorsalis pedis) . Musculoskeletal System: General/bilateral: No cyanosis of the fingers. Neurological: Oriented to time, place, and person. Nails: No clubbing of the fingernails. - Lab Results Laboratory Tests 06/08/16 06/08/16 06/08/16 09:15 09:15 09:15 WBC 5.8 RBC 4.12 L Hgb 13.2 L Hct 38.6 L MCV 94 MCH 32.1 H MCHC 34.3 RDW 14.8 H Plt Count 134 MPV 9.8 Neut % (Auto) 62.5 Lymph % (Auto) 20.6 Bent % (Auto) 10.0 Eos % (Auto) 6.1 H Baso % (Auto) 0.8 Absolute Neuts (auto) 3.60 Absolute Lymphs (auto) 1.16 PT 10.8 INR 1.1 APTT 23.6 Sodium 141 Potassium 3.5 Chloride 100 Carbon Dioxide 27 Anion Gap 18 H BUN 32 H Creatinine 2.40 H Estimated GFR (MDRD) 26 L Glucose 76 POC Capillary Glucose Hemoglobin A1c Calculated Osmolality 277 Calcium 8.8 Corrected Calcium 9.3 Magnesium Total Bilirubin 0.7 AST 24 ALT 31 Alkaline Phosphatase 72 Creatine Kinase Total Creatine Kinase Troponin I 0.15 Uqk-U-Xgnictuzemy Pept Total Protein 6.2 L Albumin 3.5 Triglycerides Cholesterol LDL Cholesterol, Calc VLDL Cholesterol, Calc HDL Cholesterol Cholesterol/HDL Ratio Urine Color Urine Clarity Urine pH Ur Specific [place] Urine Protein Urine Glucose (UA) Urine Ketones Urine Occult Blood Urine Nitrite Urine Bilirubin Urine Urobilinogen Ur Leukocyte Esterase Urine RBC Urine Bacteria Hyaline Casts Urine Mucus Urine Myoglobin 06/08/16 06/08/16 06/08/16 09:15 09:15 10:30 WBC RBC Hgb Hct MCV MCH MCHC RDW Plt Count MPV Neut % (Auto) Lymph % (Auto) Bent % (Auto) Eos % (Auto) Baso % (Auto) Absolute Neuts (auto) Absolute Lymphs (auto) PT INR APTT Sodium Potassium Chloride Carbon Dioxide Anion Gap BUN Creatinine Estimated GFR (MDRD) Glucose POC Capillary Glucose Hemoglobin A1c 6.3 H Calculated Osmolality Calcium Corrected Calcium Magnesium Total Bilirubin AST ALT Alkaline Phosphatase Creatine Kinase Total Creatine Kinase 90 Troponin I Tgc-P-Rpdowucqkhg Pept 3800 H Total Protein Albumin Triglycerides Cholesterol LDL Cholesterol, Calc VLDL Cholesterol, Calc HDL Cholesterol Cholesterol/HDL Ratio Urine Color Yellow Urine Clarity Clear Urine pH 6.0 Ur Specific [place] 1.005 Urine Protein Neg Urine Glucose (UA) Neg Urine Ketones Neg Urine Occult Blood 3+ H Urine Nitrite Neg Urine Bilirubin Neg Urine Urobilinogen <2.0 Ur Leukocyte Esterase Neg Urine RBC 40-50 H Urine Bacteria Few Hyaline Casts 0-2 Urine Mucus Occ Urine Myoglobin 06/08/16 06/08/16 06/08/16 10:30 11:48 12:00 WBC RBC Hgb Hct MCV MCH MCHC RDW Plt Count MPV Neut % (Auto) Lymph % (Auto) Bent % (Auto) Eos % (Auto) Baso % (Auto) Absolute Neuts (auto) Absolute Lymphs (auto) PT INR APTT Sodium Potassium Chloride Carbon Dioxide Anion Gap BUN Creatinine Estimated GFR (MDRD) Glucose POC Capillary Glucose 137 H Hemoglobin A1c Calculated Osmolality Calcium Corrected Calcium Magnesium Total Bilirubin AST ALT Alkaline Phosphatase Creatine Kinase Total Creatine Kinase Troponin I 0.70 H* D Alt-I-Fkczxosqnqt Pept Total Protein Albumin Triglycerides Cholesterol LDL Cholesterol, Calc VLDL Cholesterol, Calc HDL Cholesterol Cholesterol/HDL Ratio Urine Color Urine Clarity Urine pH Ur Specific [place] Urine Protein Urine Glucose (UA) Urine Ketones Urine Occult Blood Urine Nitrite Urine Bilirubin Urine Urobilinogen Ur Leukocyte Esterase Urine RBC Urine Bacteria Hyaline Casts Urine Mucus Urine Myoglobin Cancelled 06/08/16 06/08/16 06/08/16 15:05 16:36 18:35 WBC RBC Hgb Hct MCV MCH MCHC RDW Plt Count MPV Neut % (Auto) Lymph % (Auto) Bent % (Auto) Eos % (Auto) Baso % (Auto) Absolute Neuts (auto) Absolute Lymphs (auto) PT INR APTT Sodium Potassium Chloride Carbon Dioxide Anion Gap BUN Creatinine Estimated GFR (MDRD) Glucose POC Capillary Glucose 166 H Hemoglobin A1c Calculated Osmolality Calcium Corrected Calcium Magnesium Total Bilirubin AST ALT Alkaline Phosphatase Creatine Kinase 84 Total Creatine Kinase Troponin I 1.20 H* D 1.03 H* Ltj-T-Hdtaoumutgo Pept Total Protein Albumin Triglycerides Cholesterol LDL Cholesterol, Calc VLDL Cholesterol, Calc HDL Cholesterol Cholesterol/HDL Ratio Urine Color Urine Clarity Urine pH Ur Specific [place] Urine Protein Urine Glucose (UA) Urine Ketones Urine Occult Blood Urine Nitrite Urine Bilirubin Urine Urobilinogen Ur Leukocyte Esterase Urine RBC Urine Bacteria Hyaline Casts Urine Mucus Urine Myoglobin 06/08/16 06/08/16 06/08/16 18:35 21:52 22:05 WBC RBC Hgb Hct MCV MCH MCHC RDW Plt Count MPV Neut % (Auto) Lymph % (Auto) Bent % (Auto) Eos % (Auto) Baso % (Auto) Absolute Neuts (auto) Absolute Lymphs (auto) PT INR APTT Sodium Potassium Chloride Carbon Dioxide Anion Gap BUN Creatinine Estimated GFR (MDRD) Glucose POC Capillary Glucose 109 H Hemoglobin A1c Calculated Osmolality Calcium Corrected Calcium Magnesium 2.10 Total Bilirubin AST ALT Alkaline Phosphatase Creatine Kinase 79 Total Creatine Kinase Troponin I 0.92 H* Yfb-A-Aqumxizeyip Pept Total Protein Albumin Triglycerides Cholesterol LDL Cholesterol, Calc VLDL Cholesterol, Calc HDL Cholesterol Cholesterol/HDL Ratio Urine Color Urine Clarity Urine pH Ur Specific [place] Urine Protein Urine Glucose (UA) Urine Ketones Urine Occult Blood Urine Nitrite Urine Bilirubin Urine Urobilinogen Ur Leukocyte Esterase Urine RBC Urine Bacteria Hyaline Casts Urine Mucus Urine Myoglobin 06/09/16 06/09/16 06/09/16 01:40 01:40 01:40 WBC 7.0 RBC 3.62 L Hgb 11.5 L D Hct 34.0 L MCV 94 MCH 31.8 MCHC 33.8 RDW 14.8 H Plt Count 134 MPV 10.1 Neut % (Auto) Lymph % (Auto) Bent % (Auto) Eos % (Auto) Baso % (Auto) Absolute Neuts (auto) Absolute Lymphs (auto) PT INR APTT Sodium 139 Potassium 4.1 Chloride 100 Carbon Dioxide 30 Anion Gap 13 BUN 37 H Creatinine 2.50 H Estimated GFR (MDRD) 25 L Glucose 77 POC Capillary Glucose Hemoglobin A1c Calculated Osmolality 276 Calcium 8.3 L Corrected Calcium Magnesium Total Bilirubin AST ALT Alkaline Phosphatase Creatine Kinase 71 Total Creatine Kinase Troponin I 0.73 H* Jxm-Q-Tufvnrewzhv Pept Total Protein Albumin Triglycerides 218 H Cholesterol 120 LDL Cholesterol, Calc 57.4 VLDL Cholesterol, Calc 43.6 H HDL Cholesterol 19.0 L Cholesterol/HDL Ratio 6.3 Urine Color Urine Clarity Urine pH Ur Specific [place] Urine Protein Urine Glucose (UA) Urine Ketones Urine Occult Blood Urine Nitrite Urine Bilirubin Urine Urobilinogen Ur Leukocyte Esterase Urine RBC Urine Bacteria Hyaline Casts Urine Mucus Urine Myoglobin 06/09/16 05:46 WBC RBC Hgb Hct MCV MCH MCHC RDW Plt Count MPV Neut % (Auto) Lymph % (Auto) Bent % (Auto) Eos % (Auto) Baso % (Auto) Absolute Neuts (auto) Absolute Lymphs (auto) PT INR APTT Sodium Potassium Chloride Carbon Dioxide Anion Gap BUN Creatinine Estimated GFR (MDRD) Glucose POC Capillary Glucose 82 Hemoglobin A1c Calculated Osmolality Calcium Corrected Calcium Magnesium Total Bilirubin AST ALT Alkaline Phosphatase Creatine Kinase Total Creatine Kinase Troponin I Hfv-A-Rerrvyemxzs Pept Total Protein Albumin Triglycerides Cholesterol LDL Cholesterol, Calc VLDL Cholesterol, Calc HDL Cholesterol Cholesterol/HDL Ratio Urine Color Urine Clarity Urine pH Ur Specific [place] Urine Protein Urine Glucose (UA) Urine Ketones Urine Occult Blood Urine Nitrite Urine Bilirubin Urine Urobilinogen Ur Leukocyte Esterase Urine RBC Urine Bacteria Hyaline Casts Urine Mucus Urine Myoglobin - Diagnostic Findings Electrocardiogram done today showed atrial fibrillation/atrial flutter, controlled ventricular rate. ST segment abnormality suggesting ischemia. - Assessment/Plan (1) Atrial fibrillation I48.91 - UNSPECIFIED ATRIAL FIBRILLATION Chronic Present on Admission: Yes Comment: I can't tell for sure how long he has being and atrial fibrillation. I do see electrocardiogram from summer of this year when he was in sinus rhythm. His chads score is 4 and ideally he need to be anticoagulated, however because of his unsteady gait and history of subdural hematoma I do not think this is a visible option. I will call in November from [employer] to interrogate his device trying to see for how long he has been in atrial fibrillation. Rate appears to be controlled now. (2) Cardiomyopathy I42.9 - CARDIOMYOPATHY, UNSPECIFIED Chronic Comment: Last estimation of his left ventricle ejection fraction seen the computer was from 2012 echocardiogram at that time showed ejection fraction of 20%. He is not candidate for BECKY-inhibitor because of his kidney dysfunction. He is already on beta-deidre, hydralazine I will act no long-acting nitrates this medical regiment. Hemodynamically appears to be compensated. (3) Late effects of CVA (cerebrovascular accident) I69.90 - UNSPECIFIED SEQUELAE OF UNSPECIFIED CEREBROVASCULAR DISEASE Chronic Present on Admission: Yes Comment: No new changes. (4) Acute coronary syndrome I24.9 - ACUTE ISCHEMIC HEART DISEASE, UNSPECIFIED Acute Present on Admission: Yes Comment: He did have chest pain at the presentation however history is very sketchy. I at this point I will continue medical management. He was scheduled to have a stress test today however the biggest question we need to ask what we planning to do in the longer run. He does have quite significant kidney dysfunction and doing cardiac catheterization him will probably indicate need for dialysis. I think the best approach for this situation is talk to the family in trying to see what goal for them is. In my opinion medical therapy would be the most appropriate course of action. (5) CRI (chronic renal insufficiency) N18.9 - CHRONIC KIDNEY DISEASE, UNSPECIFIED Chronic Present on Admission: Yes Comment: Will continue following that. Will avoid nephrotoxic medications. (6) ICD (implantable cardioverter-defibrillator) in place Z95.810 - PRESENCE OF AUTOMATIC (IMPLANTABLE) CARDIAC DEFIBRILLATOR Chronic Present on Admission: Yes Comment: Apparently is this is a [place] device will come to company and interrogate device trying to see how much atrial fibrillation patient does have.
--- NOTE | 2016-06-09 11:36 | CAPUEKG ---
[place], [place] Test Date: 2016-06-09 Pat Name: BRETT LINDO Department: Room: ICU Gender: Male Tube Test Technician: : Requested By: Order Number: Reading MD: Edi Macias MD Measurements Intervals [place] Rate: 81 P: 48 ID: [id number] QRS: -3 QRSD: 108 T: 156 QT: 402 QTc: 466 Interpretive Statements Atrial tachychardia ST \T\ T wave abnormality, consider anterolateral ischemia Prolonged QT Abnormal ECG Electronically Signed On 06-09-16 11:35:37 EST by Edi Macias MD <[id number]> [id number]
--- NOTE | 2016-06-09 21:11 | GENMEDPROG ---
Notes Reviewed: Yes Events from last night noted and discussed with Clinical Staff Current Medication List: Reviewed Currently: Reports: NAVARRO, SOB DVT Prophylaxis: Yes - Physical Examination Vital Signs and I&O: Last Vital Signs Temp 98.3 F 06/09/16 14:00 Pulse 93 06/09/16 19:13 Resp 20 06/09/16 19:13 BP 106/56 L 06/09/16 18:00 Pulse Ox 98 06/09/16 17:00 Oxygen Pulse Oxygen Saturation 98 O2 Device Room Air Oxygen Flow Rate Fraction of Inspired Oxygen ( FIO2) Intake & Output 06/06/16 06/07/16 06/08/16 06/09/16 23:59 23:59 23:59 23:59 Intake Total 900 720 Output Total 700 1025 Balance 200 -305 Patient's weight 212 lb 1.355 oz 209 lb 14.4 oz General: Alert, Oriented x3, No acute distress, Well appearing, Well nourished HEENT: Normal (Normocephalic, atraumatic;EOMI.Sclera white, Nares patent, without discharge or bleeding. No oropharyngeal lesions or erythema. Mucous membranes are dry.) Neck: Non-tender, Full range of motion, Normal Trachea alignment, Normal inspection (No cervical lymphadenopathy. No supraclavicular lymphadenopathy.), No Masses palpable, Supple Lymphatics: Normal Respiratory: Normal - CTA Cardiovascular: Regular rate and rhythm (No bradycardia or tachycardia), Normal S1, No Gallops,Rubs/Murmurs, Normal S2, Good Pedal Pulses (DP pulses 2+ bilaterally) GI: Normal bowel sounds (normal active sounds), Soft (non-distended), Non tender , No hepatospenomegaly, No masses Extremities/Musculoskeletal: Normal pulses (DP pulses 2+ bilaterally) Skin: Warm,Dry and Intact, No rashes, No significant lesion Neurological: Strength at 5/5 X4 ext (Motor 5/5 throughout.), Normal tone, Cranial nerves 3-12 NL ( 2-12 grossly intact.) Psych/Mental Status: Appropriate, Normal Affect Lab/DI/Studies Reviewed: Laboratory Results - last 24 hr 06/08/16 06/08/16 06/08/16 10:30 21:52 22:05 WBC RBC Hgb Hct MCV MCH MCHC RDW Plt Count MPV Sodium Potassium Chloride Carbon Dioxide Anion Gap BUN Creatinine Estimated GFR (MDRD) Glucose POC Capillary Glucose 109 H Calculated Osmolality Calcium Creatine Kinase 79 Troponin I 0.92 H* Triglycerides Cholesterol LDL Cholesterol, Calc VLDL Cholesterol, Calc HDL Cholesterol Cholesterol/HDL Ratio Ur Random Microalbumin 42.9 06/09/16 06/09/16 06/09/16 01:40 01:40 01:40 WBC 7.0 RBC 3.62 L Hgb 11.5 L D Hct 34.0 L MCV 94 MCH 31.8 MCHC 33.8 RDW 14.8 H Plt Count 134 MPV 10.1 Sodium 139 Potassium 4.1 Chloride 100 Carbon Dioxide 30 Anion Gap 13 BUN 37 H Creatinine 2.50 H Estimated GFR (MDRD) 25 L Glucose 77 POC Capillary Glucose Calculated Osmolality 276 Calcium 8.3 L Creatine Kinase 71 Troponin I 0.73 H* Triglycerides 218 H Cholesterol 120 LDL Cholesterol, Calc 57.4 VLDL Cholesterol, Calc 43.6 H HDL Cholesterol 19.0 L Cholesterol/HDL Ratio 6.3 Ur Random Microalbumin 06/09/16 06/09/16 06/09/16 05:46 11:52 16:40 WBC RBC Hgb Hct MCV MCH MCHC RDW Plt Count MPV Sodium Potassium Chloride Carbon Dioxide Anion Gap BUN Creatinine Estimated GFR (MDRD) Glucose POC Capillary Glucose 82 146 H 135 H Calculated Osmolality Calcium Creatine Kinase Troponin I Triglycerides Cholesterol LDL Cholesterol, Calc VLDL Cholesterol, Calc HDL Cholesterol Cholesterol/HDL Ratio Ur Random Microalbumin - Assessment (1) Acute coronary syndrome Acute I24.9 - ACUTE ISCHEMIC HEART DISEASE, UNSPECIFIED (2) CRI (chronic renal insufficiency) Chronic N18.9 - CHRONIC KIDNEY DISEASE, UNSPECIFIED (3) CAD (coronary artery disease) Acute I25.10 - ATHSCL HEART DISEASE OF [place] CORONARY ARTERY W/O ANG PCTRS (4) Acute on chronic kidney failure Acute N17.9 - ACUTE KIDNEY FAILURE, UNSPECIFIED; N18.9 - CHRONIC KIDNEY DISEASE, UNSPECIFIED (5) Atrial fibrillation Chronic I48.91 - UNSPECIFIED ATRIAL FIBRILLATION (6) Cardiomyopathy Chronic I42.9 - CARDIOMYOPATHY, UNSPECIFIED (7) ICD (implantable cardioverter-defibrillator) in place Chronic Z95.810 - PRESENCE OF AUTOMATIC (IMPLANTABLE) CARDIAC DEFIBRILLATOR (8) Late effects of CVA (cerebrovascular accident) Chronic I69.90 - UNSPECIFIED SEQUELAE OF UNSPECIFIED CEREBROVASCULAR DISEASE (9) Congestive heart failure Active I50.9 - HEART FAILURE, UNSPECIFIED Case Care Discussed with: Patient, Nursing Staff Total Time: 40 Critical Care: Yes Code: 291
[2016-06-09] MEDS: CHLORHEXIDINE (HIBICLENS) 4 OZ BOTTLE TOP SCH (22:18)
[2016-06-09] MEDS: SIMVASTATIN 40 MG TAB PO SCH (22:26)
[2016-06-09] MEDS: GLARGINE INSULIN (LANTUS) 100 UNITS/ML PEN SQ SCH (22:32)
[2016-06-10] MEDS: Albuterol/Ipratropium Neb 3 ML NEB NEB SCH ×4 (01:20→20:32)
[2016-06-10] MEDS ORDERED: REGADENOSON 0.4 MG/5 ML SYRINGE IV ONE (06:00)
[2016-06-10 06:36] LABS: BLOOD UREA NITROGEN 41 MG/DL (9-20); CALCIUM 8.6 MG/DL (8.4-10.2); CALCULATED OSMOLALITY 280 MOs/Kg (270-290); CHLORIDE 101 mEq/L (98-107); GLUCOSE 80 MG/DL (70-99); SODIUM LEVEL 141 mEq/L (137-146)
[2016-06-10] MEDS: ARTIFICIAL TEARS OPH SOLN 15 ML OU SCH ×3 (06:45→21:50)
[2016-06-10] MEDS: SODIUM CHLORIDE 0.9% 3 ML FLUSH FLUSH SCH ×2 (06:46→16:50)
[2016-06-10 06:54] VITALS: BMI 27.2
[2016-06-10] MEDS: REGULAR INSULIN 100 UNITS/ML - 3 ML VIAL SQ SCH ×4 (07:26→21:52)
[2016-06-10] MEDS ORDERED: SODIUM CHLORIDE 0.9% 10 ML FLUSH FLUSH ONE (08:00)
[2016-06-10] MEDS: ISOSORBIDE MONONITRATE 30 MG TAB PO SCH (08:15)
[2016-06-10] MEDS: GABAPENTIN 300 MG CAP PO SCH ×3 (08:16→21:55)
[2016-06-10] MEDS: hydrALAZINE 25 MG TAB PO SCH ×2 (08:16→21:55)
[2016-06-10] MEDS: FUROSEMIDE 80 MG TAB PO SCH ×2 (08:16→15:31)
[2016-06-10] MEDS: PANTOPRAZOLE 40 MG TAB PO SCH (08:16)
[2016-06-10] MEDS: FINASTERIDE 5 MG TAB PO SCH (08:17)
[2016-06-10] MEDS: ALLOPURINOL 100 MG TAB PO SCH (08:17)
[2016-06-10] MEDS: Loratadine 10 MG TAB PO SCH (08:17)
[2016-06-10] MEDS: TAMSULOSIN HCL 0.4 MG CAP PO SCH (08:17)
[2016-06-10] MEDS: LEVETIRACETAM 250 MG TAB PO SCH ×2 (08:18→21:54)
[2016-06-10] MEDS: METOPROLOL TARTRATE 25 MG TAB PO SCH (08:18)
[2016-06-10] MEDS: KETOCONAZOLE 2% CREAM 15 GM TUBE TOP SCH (08:19)
[2016-06-10] MEDS: COLCHICINE 0.6 MG TAB PO SCH (08:19)
[2016-06-10] MEDS: AMLODIPINE 2.5 MG TAB PO SCH (08:21)
--- NOTE | 2016-06-10 08:25 | GENMEDPROG ---
Chief Complaint: nstemi Subjective Note: Doing well, resting comfortably in the ICU. Has no complaints, denies any chest pain or nausea, or shortness of breath. Nursing is at the bedside. Also discussed this morning with his daughter Mariaelena. Notes Reviewed: Yes Events from last night noted and discussed with Clinical Staff Current Medication List: Reviewed DVT Prophylaxis: Yes - Physical Examination Vital Signs and I&O: Last Vital Signs Temp 98.2 F 06/10/16 07:00 Pulse 83 06/10/16 07:47 Resp 18 06/10/16 07:00 BP 121/59 L 06/10/16 07:00 Pulse Ox 97 06/10/16 07:54 Oxygen Pulse Oxygen Saturation 97 O2 Device Room Air Oxygen Flow Rate Fraction of Inspired Oxygen ( FIO2) Intake & Output 06/08/16 06/09/16 06/10/16 06/11/16 06:59 06:59 06:59 06:59 Intake Total 1020 840 Output Total 1225 1150 Balance -205 -310 Patient's weight 95.209 kg 91.081 kg General: Alert, Oriented x3, No acute distress, Well appearing, Well nourished HEENT: Normal (Normocephalic, atraumatic;EOMI.Sclera white, Nares patent, without discharge or bleeding. No oropharyngeal lesions or erythema. Mucous membranes are dry.) Neck: Non-tender, Full range of motion, Normal Trachea alignment, Normal inspection (No cervical lymphadenopathy. No supraclavicular lymphadenopathy.), No Masses palpable, Supple Lymphatics: Normal Respiratory: Normal - CTA Cardiovascular: Regular rate and rhythm (No bradycardia or tachycardia), Normal S1, No Gallops,Rubs/Murmurs, Normal S2, Good Pedal Pulses (DP pulses 2+ bilaterally) GI: Normal bowel sounds (normal active sounds), Soft (non-distended), Non tender , No hepatospenomegaly, No masses Extremities/Musculoskeletal: Normal pulses (DP pulses 2+ bilaterally) Skin: Warm,Dry and Intact, No rashes, No significant lesion Neurological: Strength at 5/5 X4 ext (Motor 5/5 throughout.), Normal tone, Cranial nerves 3-12 NL ( 2-12 grossly intact.) Psych/Mental Status: Appropriate, Normal Affect Lab/DI/Studies Reviewed: Laboratory Tests 06/08/16 06/08/1616 12:00 18:35 01:40 WBC Hgb Potassium BUN Creatinine Troponin I 0.70 H* D 1.03 H* 0.73 H* 06/10/16 06/10/16 05:45 05:45 WBC 6.4 Hgb 12.1 L Potassium 4.0 BUN 41 H Creatinine 2.60 H Troponin I 0.26 - Assessment (1) Acute coronary syndrome Acute I24.9 - ACUTE ISCHEMIC HEART DISEASE, UNSPECIFIED Comment/Plan: With elevated troponin, peaked at 1.2 and down to 0.20 this morning. Being followed by Cardiology, medical management. Originally, stress test had been planned and was discontinued after his troponin elevated. Cardiology does not recommend any anticoagulation given history of subdural hematoma, and falls at home. Continue medical management today. Follow up any further cardiology recommendations. He is also not a catheterization candidate due to his chronic renal failure. (2) Acute on chronic kidney failure Acute N17.9 - ACUTE KIDNEY FAILURE, UNSPECIFIED; N18.9 - CHRONIC KIDNEY DISEASE, UNSPECIFIED Comment/Plan: Avoid nephro toxic agents, consider gentle hydration. Patient also has a history of urinary retention, had Gallardo catheter placed yesterday. Will attempt to remove this today. (3) CAD (coronary artery disease) Acute I25.10 - ATHSCL HEART DISEASE OF [place] CORONARY ARTERY W/O ANG PCTRS (4) Atrial fibrillation Chronic I48.91 - UNSPECIFIED ATRIAL FIBRILLATION Comment/Plan: This is new. He is rate controlled on beta-deidre. Not a candidate for anticoagulation. 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 (7) Seizure Acute R56.9 - UNSPECIFIED CONVULSIONS (8) Subdural hematoma Acute I62.00 - NONTRAUMATIC SUBDURAL HEMORRHAGE, UNSPECIFIED Comment/Plan: Has a prior history of hematoma and falls. Due to this, he will not be a candidate for anticoagulation related to his atrial fibrillation or myocardial infarction. - Plan Continue present care with medical management as able. Continue metoprolol for atrial fibrillation. Cardiology following. Remove Gallardo catheter today, he will likely be ready for discharge back to home under stable program within the next 1-2 days.
--- NOTE | 2016-06-10 09:25 | PCM.CARD ---
- Subjective Reason for visit: Follow up abnormal troponin I Doing well denies have any problems. Vital Signs: Last Vital Signs Temp 98.2 F 06/10/16 07:00 Pulse 84 06/10/16 08:18 Resp 18 06/10/16 07:00 BP 120/77 06/10/16 08:18 Pulse Ox 97 06/10/16 07:54 PE: General Appearance: Well developed. Well nourished. In no acute distress. Lungs: Chest was not overinflated. Clear to auscultation. Cardiovascular: Jugular Venous Distention: JVD not increased. Heart Rate And Rhythm: Irregular irregular. Heart Sounds: Normal. Murmurs: Systolic murmur like always Carotid Arteries: Carotid pulses were normal. No bruit in the carotid artery. Edema: Not present. Lower extremities pulses normal (including femoral popliteal and dorsalis pedis) . Musculoskeletal System: General/bilateral: No cyanosis of the fingers. Neurological: Oriented to time, place, and person. Nails: No clubbing of the fingernails. Lab/DI Results Reviewed: Laboratory Results - last 24 hr 06/08/16 06/09/16 06/09/16 10:30 11:52 16:40 WBC RBC Hgb Hct MCV MCH MCHC RDW Plt Count MPV Sodium Potassium Chloride Carbon Dioxide Anion Gap BUN Creatinine Estimated GFR (MDRD) Glucose POC Capillary Glucose 146 H 135 H Calculated Osmolality Calcium Troponin I Ur Random Microalbumin 42.9 06/09/16 06/10/16 06/10/16 21:29 05:45 05:45 WBC 6.4 RBC 3.83 L Hgb 12.1 L Hct 36.3 L MCV 95 H MCH 31.5 MCHC 33.2 RDW 14.7 H Plt Count 139 MPV 10.0 Sodium 141 Potassium 4.0 Chloride 101 Carbon Dioxide 29 Anion Gap 15 BUN 41 H Creatinine 2.60 H Estimated GFR (MDRD) 24 L Glucose 80 POC Capillary Glucose 217 H Calculated Osmolality 280 Calcium 8.6 Troponin I 0.26 Ur Random Microalbumin 06/10/16 06:29 WBC RBC Hgb Hct MCV MCH MCHC RDW Plt Count MPV Sodium Potassium Chloride Carbon Dioxide Anion Gap BUN Creatinine Estimated GFR (MDRD) Glucose POC Capillary Glucose 78 Calculated Osmolality Calcium Troponin I Ur Random Microalbumin - Assessment/Plan (1) Atrial fibrillation Chronic I48.91 - UNSPECIFIED ATRIAL FIBRILLATION Present on Admission: Yes Comment/Plan: Rate appears to be controlled. He is not anticoagulated secondary for history subdural hematoma and frequent falls. Beta-deidre is given to control his ventricular rate. I will discontinue Norvasc and increase dose of beta-deidre to 50 mg twice daily. (2) Cardiomyopathy Chronic I42.9 - CARDIOMYOPATHY, UNSPECIFIED Present on Admission: Yes Comment/Plan: Hemodynamically stable. On a beta-deidre which I will increase the dose of. He is not on ARB/BECKY-inhibitor secondary to kidney dysfunction. On vasodilatation with hydralazine isosorbide which will continue. 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 (4) Acute coronary syndrome Acute I24.9 - ACUTE ISCHEMIC HEART DISEASE, UNSPECIFIED Present on Admission: Yes Comment/Plan: He does have minimal elevation of troponin I. However interrogation of his ICD reveal 5 shocks the day of the admission. Today talking to him will be more either feeling that what he felt really was shocks from the defibrillator. Those shocks were inappropriate that was related to atrial fibrillation with fast ventricular rate. Will try to control atrial fibrillation with beta- deidre try to avoid those inappropriate shocks in the future. Because of his comorbidity I definitely favor medical therapy in this case. (5) CRI (chronic renal insufficiency) Chronic N18.9 - CHRONIC KIDNEY DISEASE, UNSPECIFIED Present on Admission: Yes Comment/Plan: Will avoid nephrotoxic medications. 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 This is single-chamber device therefore would not able to distinguish and diagnose the duration of atrial fibrillation. Regardless his ventricular rate will be controlled with beta- deidre and will by doing this hopefully will avoid inappropriate shocks in the future. - Plan Gentleman with multiple issues presented to hospital with chest pain did have minimal spell of troponin I however interrogation of he is ICD reveal multiple inappropriate shocks because of atrial fibrillation fast ventricular rate. Ventricular rate will be controlled. Will continue medical therapy for his cardiomyopathy as well as for coronary artery disease.
--- NOTE | 2016-06-10 09:42 | DIRPT ---
CLINICAL DATA: Respiratory failure and chest pain. EXAM: PORTABLE CHEST 1 VIEW COMPARISON: 1 day prior FINDINGS: Pacer/AICD device. 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 Prior median sternotomy. Midline trachea. Mild cardiomegaly with transverse aortic atherosclerosis. No pleural effusion or pneumothorax. No congestive failure. Minimal subsegmental atelectasis or scarring at the left lung base. right infrahilar opacity is similar IMPRESSION: Similar right infrahilar opacity, either atelectasis or infection. Recommend radiographic follow-up until clearing. Cardiomegaly without congestive failure. Electronically Signed By: Antoine Briseno M.D. On: 06/10/2016 09:40
[2016-06-10] MEDS: METOPROLOL TARTRATE 50 MG TAB PO SCH ×2 (09:56→21:54)
--- NOTE | 2016-06-10 12:17 | CAPUEKG ---
[place], [place] Test Date: 2016-06-10 Pat Name: BRETT LINDO Department: Room: ICU Gender: Male Store Associate: : Requested By: Order Number: Reading MD: Edi Macias MD Measurements Intervals Garber Rate: 82 P: MD: QRS: 4 QRSD: 100 T: 161 QT: 398 QTc: 464 Interpretive Statements Atrial fibrillation with premature ventricular or aberrantly conducted complexes T wave abnormality, consider lateral ischemia or digitalis effect Prolonged QT Abnormal ECG Electronically Signed On 06-10-16 12:16:36 EST by Edi Macias MD <[email or web address]> [id number]
[2016-06-10] MEDS: GLARGINE INSULIN (LANTUS) 100 UNITS/ML PEN SQ SCH (21:53)
[2016-06-10] MEDS: CHLORHEXIDINE (HIBICLENS) 4 OZ BOTTLE TOP SCH (21:55)
[2016-06-10] MEDS: SIMVASTATIN 40 MG TAB PO SCH (21:55)
[2016-06-11] MEDS: Albuterol/Ipratropium Neb 3 ML NEB NEB SCH ×4 (02:03→20:45)
[2016-06-11] MEDS: ISOSORBIDE MONONITRATE 30 MG TAB PO SCH (05:15)
[2016-06-11] MEDS: PANTOPRAZOLE 40 MG TAB PO SCH (05:15)
[2016-06-11] MEDS: GABAPENTIN 300 MG CAP PO SCH ×3 (05:15→21:38)
[2016-06-11] MEDS: ARTIFICIAL TEARS OPH SOLN 15 ML OU SCH ×3 (05:15→21:40)
[2016-06-11] MEDS: SODIUM CHLORIDE 0.9% 3 ML FLUSH FLUSH SCH ×2 (05:16→16:04)
[2016-06-11] MEDS: REGULAR INSULIN 100 UNITS/ML - 3 ML VIAL SQ SCH ×4 (05:24→21:37)
[2016-06-11 06:04] LABS: BLOOD UREA NITROGEN 40 MG/DL (9-20); CALCIUM 8.6 MG/DL (8.4-10.2); CALCULATED OSMOLALITY 276 MOs/Kg (270-290); CHLORIDE 97 mEq/L (98-107); GLUCOSE 107 MG/DL (70-99); SODIUM LEVEL 138 mEq/L (137-146)
--- NOTE | 2016-06-11 08:18 | GENMEDPROG ---
Chief Complaint: 81-year-old gentleman admitted with non STEMI. Subjective Note: 81-year-old gentleman who had atrial fibrillation has a single chamber AICD which went off about 5 times due to atrial fibrillation. He then subsequently had spill of cardiac enzymes. He remains very weak. Physical therapy to evaluate him today for possible nursing home. Notes Reviewed: Yes Events from last night noted and discussed with Clinical Staff Current Medication List: Reviewed Currently: Reports: NAVARRO, SOB DVT Prophylaxis: Yes - Physical Examination Vital Signs and I&O: Last Vital Signs Temp 97.1 F L 06/11/16 06:00 Pulse 77 06/11/16 07:00 Resp 19 06/11/16 07:00 BP 128/66 06/11/16 07:00 Pulse Ox 96 06/11/16 07:54 Oxygen Pulse Oxygen Saturation 96 O2 Device Room Air Oxygen Flow Rate Fraction of Inspired Oxygen ( FIO2) Intake & Output 06/08/16 06/09/16 06/10/16 06/11/16 23:59 23:59 23:59 23:59 Intake Total 337 193 9519 Output Total 700 1250 575 Balance 200 -290 905 Patient's weight 96.2 kg 95.209 kg 91.081 kg 91.081 kg General: Alert, Oriented x3, No acute distress, Well appearing, Well nourished HEENT: Normal (Normocephalic, atraumatic;EOMI.Sclera white, Nares patent, without discharge or bleeding. No oropharyngeal lesions or erythema. Mucous membranes are dry.) Neck: Non-tender, Full range of motion, Normal Trachea alignment, Normal inspection (No cervical lymphadenopathy. No supraclavicular lymphadenopathy.), No Masses palpable, Supple Lymphatics: Normal Respiratory: Normal - CTA Cardiovascular: Regular rate and rhythm (No bradycardia or tachycardia), Normal S1, No Gallops,Rubs/Murmurs, Normal S2, Good Pedal Pulses (DP pulses 2+ bilaterally) GI: Normal bowel sounds (normal active sounds), Soft (non-distended), Non tender , No hepatospenomegaly, No masses Extremities/Musculoskeletal: Normal pulses (DP pulses 2+ bilaterally) Skin: Warm,Dry and Intact, No rashes, No significant lesion Neurological: Strength at 5/5 X4 ext (Motor 5/5 throughout.), Normal tone, Cranial nerves 3-12 NL ( 2-12 grossly intact.) Psych/Mental Status: Appropriate, Normal Affect Lab/DI/Studies Reviewed: Laboratory Results - last 24 hr 06/10/16 06/10/16 06/10/16 10:49 16:49 20:23 WBC RBC Hgb Hct MCV MCH MCHC RDW Plt Count MPV Sodium Potassium Chloride Carbon Dioxide Anion Gap BUN Creatinine Estimated GFR (MDRD) Glucose POC Capillary Glucose 180 H 136 H 190 H Calculated Osmolality Calcium 06/11/16 06/11/16 06/11/16 05:23 05:35 05:35 WBC 6.9 RBC 3.98 L Hgb 12.5 L Hct 37.6 L MCV 95 H MCH 31.4 MCHC 33.2 RDW 14.9 H Plt Count 153 MPV 10.0 Sodium 138 Potassium 4.2 Chloride 97 L Carbon Dioxide 30 Anion Gap 15 BUN 40 H Creatinine 2.30 H Estimated GFR (MDRD) 27 L Glucose 107 H POC Capillary Glucose 117 H Calculated Osmolality 276 Calcium 8.6 - Assessment (1) Acute coronary syndrome Acute I24.9 - ACUTE ISCHEMIC HEART DISEASE, UNSPECIFIED Comment/Plan: It appears that AICD went off causing elevations in troponin due to atrial fibrillation. Patient subsequently had a non STEMI. Cardiology does not recommend any anticoagulation given history of subdural hematoma, and falls at home. Continue medical management today. He is also not a catheterization candidate due to his chronic renal failure. (2) Acute on chronic kidney failure Acute N17.9 - ACUTE KIDNEY FAILURE, UNSPECIFIED; N18.9 - CHRONIC KIDNEY DISEASE, UNSPECIFIED Comment/Plan: Avoid nephro toxic agents, consider gentle hydration. Patient also has a history of urinary retention, Gallardo catheter removed yesterday will check for postvoid residuals. (3) CAD (coronary artery disease) Acute I25.10 - ATHSCL HEART DISEASE OF [place] CORONARY ARTERY W/O ANG PCTRS Qualifiers: Coronary Disease-Associated Artery/Lesion type: [place] artery [place] vs. transplanted heart: [place] heart Associated angina: without angina Qualified Code(s): I25.10 - Atherosclerotic heart disease of [place] coronary artery without angina pectoris Comment/Plan: Noted continue medical management (4) Atrial fibrillation Chronic I48.91 - UNSPECIFIED ATRIAL FIBRILLATION Comment/Plan: He is rate controlled on beta-deidre. Not a candidate for anticoagulation. This is a recent diagnosis. 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 Due to this, he will not be a candidate for anticoagulation related to his atrial fibrillation or myocardial infarction. - Plan Continue medical management. PT and OT evaluations. Probable nursing home admission. Disposition Plan: Likely to [facility]. Case Care Discussed with: Patient, Nursing Staff Education/Counseling Given To: Patient Education/Counseling Given Regarding: Diagnosis, Treatment, Prognosis, Follow Up , Disposition Plan Total Time: 35 minutes Critical Care: No Couseling Time (>50% in counseling/coordination): No
[2016-06-11] MEDS: FINASTERIDE 5 MG TAB PO SCH (09:01)
[2016-06-11] MEDS: Loratadine 10 MG TAB PO SCH (09:01)
[2016-06-11] MEDS: FUROSEMIDE 80 MG TAB PO SCH ×2 (09:01→17:17)
[2016-06-11] MEDS: COLCHICINE 0.6 MG TAB PO SCH (09:02)
[2016-06-11] MEDS: LEVETIRACETAM 250 MG TAB PO SCH ×2 (09:02→21:39)
[2016-06-11] MEDS: TAMSULOSIN HCL 0.4 MG CAP PO SCH (09:02)
[2016-06-11] MEDS: ALLOPURINOL 100 MG TAB PO SCH (09:03)
[2016-06-11] MEDS: METOPROLOL TARTRATE 50 MG TAB PO SCH (09:03)
[2016-06-11] MEDS: KETOCONAZOLE 2% CREAM 15 GM TUBE TOP SCH (09:04)
[2016-06-11] MEDS: hydrALAZINE 25 MG TAB PO SCH ×2 (09:04→21:39)
--- NOTE | 2016-06-11 09:32 | PCM.CARD ---
- Subjective Reason for visit: f/u afib, ischemic CM, Subj: pt verbally responsive, but unable to provide meaningful ROS. Spoke to dtr earlier, no specific complaints relayed from pt. Pt denies pain. Breathing "ok". Vital Signs: Last Vital Signs Temp 97.7 F 06/11/16 08:00 Pulse 107 06/11/16 09:03 Resp 20 06/11/16 08:00 BP 93/57 L 06/11/16 09:03 Pulse Ox 99 06/11/16 08:00 Intake & Output 06/08/16 06/09/16 06/10/16 06/11/16 23:59 23:59 23:59 23:59 Intake Total 934 270 7866 Output Total 800 0855 983 0580 Balance 100 -290 905 -1200 Patient's weight 96.2 kg 95.209 kg 91.081 kg 91.081 kg PE: Physical Exam GEN: Elderly gentleman, was sleeping comfortably supine on my arrival VS: as above HEENT: neck veins plethoric, carotids normal CHEST: scattered wheezes, no rales, moving air well.. COR: irreg irreg, distajt s1, s2, no s3 Gr 1/6 IGNACIO R 2ICS. MR murmur not prominent ABD: no distention; non-tender EXTREM: no gross edema SKIN: warm, dry NEURO: verbally responsive, moving all 4s, poor historian Lab/DI Results Reviewed: Laboratory Tests 06/09/16 06/10/16 06/11/16 01:40 05:45 05:35 WBC Hgb Hct Plt Count Sodium 138 Potassium 4.2 Chloride 97 L Carbon Dioxide 30 BUN 40 H Creatinine 2.30 H Estimated GFR (MDRD) 27 L Troponin I 0.73 H* 0.26 06/11/16 05:35 WBC 6.9 Hgb 12.5 L Hct 37.6 L Plt Count 153 Sodium Potassium Chloride Carbon Dioxide BUN Creatinine Estimated GFR (MDRD) Troponin I Laboratory Tests 06/08/16 06/11/16 09:15 05:35 Hlq-R-Rbyrjdawigh Pept 3800 H 70551 H tele: afib, rate mostly controlled, generally 80s. Occas spikes to 130 with stimultation IMPRESSION: type 2 NSTEMI, driven by persistent tachycardia in afib dtr concerned about hypotension, generally orthostatic at home recently on metoprolol - further decomp of chronic sys/diastolic CHF - Plan PLAN: incr furosemide; switch to metoprolol succinate for more even duration and b/o low EF progress activity would not pursue re-eval of CAD (stress test/cath) given lack of ongoing anginal symptoms and comorbidities.
[2016-06-11] MEDS: CHLORHEXIDINE (HIBICLENS) 4 OZ BOTTLE TOP SCH (21:37)
[2016-06-11] MEDS: SIMVASTATIN 40 MG TAB PO SCH (21:38)
[2016-06-11] MEDS: GLARGINE INSULIN (LANTUS) 100 UNITS/ML PEN SQ SCH (21:41)
[2016-06-11] MEDS: METOPROLOL (TOPROL-XL) 50 MG TAB PO SCH (21:47)
[2016-06-11] MEDS: Furosemide 100 MG/10 ML VIAL IV SCH (21:48)
[2016-06-12] MEDS: Albuterol/Ipratropium Neb 3 ML NEB NEB SCH ×3 (02:12→15:02)
[2016-06-12] MEDS: REGULAR INSULIN 100 UNITS/ML - 3 ML VIAL SQ SCH ×4 (05:45→20:53)
[2016-06-12 05:52] LABS: MPV 9.9 fL (7.4-10.4)
[2016-06-12] MEDS: PANTOPRAZOLE 40 MG TAB PO SCH (06:01)
[2016-06-12] MEDS: Furosemide 100 MG/10 ML VIAL IV SCH ×3 (06:01→21:02)
[2016-06-12] MEDS: GABAPENTIN 300 MG CAP PO SCH ×3 (06:01→20:50)
[2016-06-12] MEDS: ISOSORBIDE MONONITRATE 30 MG TAB PO SCH (06:01)
[2016-06-12] MEDS: ARTIFICIAL TEARS OPH SOLN 15 ML OU SCH ×3 (06:01→20:49)
[2016-06-12] MEDS: SODIUM CHLORIDE 0.9% 3 ML FLUSH FLUSH SCH ×2 (06:02→17:59)
[2016-06-12 06:06] LABS: BLOOD UREA NITROGEN 41 MG/DL (9-20); CALCIUM 8.5 MG/DL (8.4-10.2); CALCULATED OSMOLALITY 282 MOs/Kg (270-290); CHLORIDE 100 mEq/L (98-107); GLUCOSE 109 MG/DL (70-99); SODIUM LEVEL 141 mEq/L (137-146)
[2016-06-12] MEDS: LEVETIRACETAM 250 MG TAB PO SCH ×2 (08:13→20:51)
[2016-06-12] MEDS: POTASSIUM CHLORIDE 10 MEQ TABLET PO SCH ×2 (08:13→17:58)
[2016-06-12] MEDS: Loratadine 10 MG TAB PO SCH (08:14)
[2016-06-12] MEDS: TAMSULOSIN HCL 0.4 MG CAP PO SCH (08:14)
[2016-06-12] MEDS: ALLOPURINOL 100 MG TAB PO SCH (08:14)
[2016-06-12] MEDS: COLCHICINE 0.6 MG TAB PO SCH (08:14)
[2016-06-12] MEDS: FINASTERIDE 5 MG TAB PO SCH (08:15)
[2016-06-12] MEDS: METOPROLOL (TOPROL-XL) 50 MG TAB PO SCH ×2 (08:15→20:52)
[2016-06-12] MEDS: hydrALAZINE 25 MG TAB PO SCH ×2 (08:15→20:52)
--- NOTE | 2016-06-12 08:42 | GENMEDPROG ---
Subjective Note: 81-year-old gentleman with AICD who had an episode of atrial fibrillation prompting his AICD to fire several times. He then had some positive troponins but those were felt related to AICD firing and not to acute myocardial infarction. Patient is recovering slowly he remains extraordinarily weak and confused. He lives alone in an apartment and goes to stay well 3 times a week and has aides who come in the morning and in the evening to help him. This morning he is complaining of shortness of breath and difficulty getting a breath when he takes a deep breath Notes Reviewed: Yes Events from last night noted and discussed with Clinical Staff Current Medication List: Reviewed Currently: Reports: NAVARRO, SOB DVT Prophylaxis: Yes - Physical Examination Vital Signs and I&O: Last Vital Signs Temp 97.9 F 06/12/16 07:00 Pulse 96 06/12/16 07:22 Resp 18 06/12/16 07:00 BP 144/66 06/12/16 06:01 Pulse Ox 96 06/12/16 06:00 Oxygen Pulse Oxygen Saturation 96 O2 Device Room Air Oxygen Flow Rate Fraction of Inspired Oxygen ( FIO2) Intake & Output 06/09/16 06/10/16 06/11/16 06/12/16 23:59 23:59 23:59 23:59 Intake Total 960 1480 360 Output Total 6561 499 5973 1125 Balance -290 905 -1200 -765 Patient's weight 95.209 kg 91.081 kg 91.081 kg General: Alert, Oriented x3, No acute distress, Well appearing, Well nourished HEENT: Normal (Normocephalic, atraumatic;EOMI.Sclera white, Nares patent, without discharge or bleeding. No oropharyngeal lesions or erythema. Mucous membranes are dry.) Neck: Non-tender, Full range of motion, Normal Trachea alignment, Normal inspection (No cervical lymphadenopathy. No supraclavicular lymphadenopathy.), No Masses palpable, Supple Lymphatics: Normal Respiratory: Diminished, Rales Cardiovascular: Regular rate and rhythm (No bradycardia or tachycardia), Normal S1, No Gallops,Rubs/Murmurs, Normal S2, Good Pedal Pulses (DP pulses 2+ bilaterally) GI: Normal bowel sounds (normal active sounds), Soft (non-distended), Non tender , No hepatospenomegaly, No masses Extremities/Musculoskeletal: Normal pulses (DP pulses 2+ bilaterally) Skin: Warm,Dry and Intact, No rashes, No significant lesion Neurological: Strength at 5/5 X4 ext (Motor 5/5 throughout.), Normal tone, Cranial nerves 3-12 NL ( 2-12 grossly intact.) Psych/Mental Status: Appropriate, Normal Affect Lab/DI/Studies Reviewed: Abnormal Lab Results 06/11/16 06/11/16 06/11/16 05:35 12:43 17:05 RBC Hgb Hct RDW BUN Creatinine Estimated GFR (MDRD) Glucose POC Capillary Glucose 213 H 168 H Tiw-D-Avrxiymwobb Pept 31939 H 06/11/16 06/12/16 06/12/16 20:41 05:10 05:40 RBC Hgb Hct RDW BUN 41 H Creatinine 2.40 H Estimated GFR (MDRD) 26 L Glucose 109 H POC Capillary Glucose 138 H 111 H Sdd-J-Ukyopfywfkv Pept 06/12/16 05:40 RBC 3.80 L Hgb 12.1 L Hct 35.9 L RDW 14.8 H BUN Creatinine Estimated GFR (MDRD) Glucose POC Capillary Glucose Dgc-B-Qndgabpnpda Pept - Assessment (1) Acute coronary syndrome Acute I24.9 - ACUTE ISCHEMIC HEART DISEASE, UNSPECIFIED Comment/Plan: It appears that AICD went off causing elevations in troponin due to atrial fibrillation. Patient subsequently had a non STEMI. Cardiology does not recommend any anticoagulation given history of subdural hematoma, and falls at home. Continue medical management today. He is also not a catheterization candidate due to his chronic renal failure. (2) Acute on chronic kidney failure Acute N17.9 - ACUTE KIDNEY FAILURE, UNSPECIFIED; N18.9 - CHRONIC KIDNEY DISEASE, UNSPECIFIED Comment/Plan: Avoid nephro toxic agents, consider gentle hydration. Patient also has a history of urinary retention, Gallardo catheter removed yesterday will check for postvoid residuals. (3) CAD (coronary artery disease) Acute I25.10 - ATHSCL HEART DISEASE OF [place] CORONARY ARTERY W/O ANG PCTRS Qualifiers: Coronary Disease-Associated Artery/Lesion type: [place] artery [place] vs. transplanted heart: [place] heart Associated angina: without angina Qualified Code(s): I25.10 - Atherosclerotic heart disease of [place] coronary artery without angina pectoris Comment/Plan: Noted continue medical management (4) Atrial fibrillation Chronic I48.91 - UNSPECIFIED ATRIAL FIBRILLATION Comment/Plan: He is rate controlled on beta-deidre. Not a candidate for anticoagulation. This is a recent diagnosis. 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 Due to this, he will not be a candidate for anticoagulation related to his atrial fibrillation or myocardial infarction. (9) Urinary retention with incomplete bladder emptying Acute R33.9 - RETENTION OF URINE, UNSPECIFIED Comment/Plan: Patient with a long history of urinary retention. He has had a Gallardo catheter in place for several months. Catheter was removed however now he is having difficulty with continued retention. He has had multiple in and out catheterization with greater than a L and greater than 750 mL. Coude catheter was placed last night. I believe patient will require outpatient urology evaluation going forward. I do not believe that he will be able to function well without a Gallardo catheter at this point. - Plan Continue medical management. PT and OT evaluations. Probable longterm facility at discharge Patient will require Gallardo catheter at discharge Patient awaiting floor bed times 48 hours Disposition Plan: Likely to [facility]. Case Care Discussed with: Patient, Family, Nursing Staff Education/Counseling Given To: Patient, Family Member Education/Counseling Given Regarding: Diagnosis, Treatment, Prognosis, Follow Up , Disposition Plan Total Time: 45 minutes Critical Care: No Couseling Time (>50% in counseling/coordination): No
--- NOTE | 2016-06-12 10:22 | PCM.CARD ---
- Subjective Reason for visit: f/u afib, acute/chronic sys/vanessa CHF Subj: pt napping, easily arousable to verbal stim, denies complaint. Denies CP, SOB. Remains disoriented. Vital Signs: Last Vital Signs Temp 97.9 F 06/12/16 07:00 Pulse 96 06/12/16 07:22 Resp 18 06/12/16 07:00 BP 144/66 06/12/16 06:01 Pulse Ox 96 06/12/16 06:00 Intake & Output 06/09/16 06/10/16 06/11/16 06/12/16 23:59 23:59 23:59 23:59 Intake Total 960 1480 360 Output Total 4563 788 1186 1125 Balance -290 905 -1200 -765 Patient's weight 95.209 kg 91.081 kg 91.081 kg PE: Physical Exam GEN: Elderly, dosing, easily arousable, VS: as above HEENT: no JVD, carotids normal CHEST: clear COR: irreg irreg, soft sys murmur, no s3 ABD: soft no distention; has montgomery in EXTREM: trace if any edema SKIN: warm dry NEURO: arousable, no focal motor deficit. Disoriented, normal speech. Lab/DI Results Reviewed: Laboratory Tests 06/11/16 06/11/16 06/12/16 05:35 05:35 05:40 WBC Hgb Hct Sodium 138 141 Potassium 4.2 3.9 Chloride 100 Carbon Dioxide 29 BUN 40 H 41 H Creatinine 2.30 H 2.40 H Estimated GFR (MDRD) 26 L Ibd-Y-Dauunuutzlh Pept 93229 H 06/12/16 05:40 WBC 8.1 Hgb 12.1 L Hct 35.9 L Sodium Potassium Chloride Carbon Dioxide BUN Creatinine Estimated GFR (MDRD) Pru-R-Rnyfflibiek Pept tele: afib, rate controlled with only short periods of tachycardia; rate generally 80s/90s at rest IMPRESSION: stable cardiovascular status diuresis established for modest decomp of chr combined sys/vanessa CHF - Plan PLAN: con't diuresis, progress activity ? if [place] is still viable, may be best served by SNF placement.
[2016-06-12] MEDS: KETOCONAZOLE 2% CREAM 15 GM TUBE TOP SCH (13:47)
[2016-06-12] MEDS ORDERED: Albuterol/Ipratropium Neb 3 ML NEB NEB PRN (15:40)
[2016-06-12] MEDS: GLARGINE INSULIN (LANTUS) 100 UNITS/ML PEN SQ SCH (20:50)
[2016-06-12] MEDS: CHLORHEXIDINE (HIBICLENS) 4 OZ BOTTLE TOP SCH (20:51)
[2016-06-12] MEDS: SIMVASTATIN 40 MG TAB PO SCH (20:53)
[2016-06-13] MEDS: ISOSORBIDE MONONITRATE 30 MG TAB PO SCH (05:35)
[2016-06-13] MEDS: ARTIFICIAL TEARS OPH SOLN 15 ML OU SCH (05:35)
[2016-06-13] MEDS: Furosemide 100 MG/10 ML VIAL IV SCH (05:37)
[2016-06-13] MEDS: SODIUM CHLORIDE 0.9% 3 ML FLUSH FLUSH SCH (05:38)
[2016-06-13] MEDS: PANTOPRAZOLE 40 MG TAB PO SCH (05:38)
[2016-06-13] MEDS: GABAPENTIN 300 MG CAP PO SCH (05:38)
[2016-06-13] MEDS: REGULAR INSULIN 100 UNITS/ML - 3 ML VIAL SQ SCH ×2 (05:50→10:51)
[2016-06-13 06:17] LABS: MPV 10.3 fL (7.4-10.4)
[2016-06-13 06:29] LABS: BLOOD UREA NITROGEN 41 MG/DL (9-20); CALCIUM 8.1 MG/DL (8.4-10.2); CALCULATED OSMOLALITY 280 MOs/Kg (270-290); CHLORIDE 100 mEq/L (98-107); GLUCOSE 140 MG/DL (70-99); SODIUM LEVEL 139 mEq/L (137-146)
[2016-06-13] MEDS: POTASSIUM CHLORIDE 10 MEQ TABLET PO SCH (07:56)
[2016-06-13] MEDS: KETOCONAZOLE 2% CREAM 15 GM TUBE TOP SCH (07:56)
[2016-06-13] MEDS: LEVETIRACETAM 250 MG TAB PO SCH (07:57)
[2016-06-13] MEDS: Loratadine 10 MG TAB PO SCH (07:57)
[2016-06-13] MEDS: TAMSULOSIN HCL 0.4 MG CAP PO SCH (07:58)
[2016-06-13] MEDS: hydrALAZINE 25 MG TAB PO SCH (07:58)
[2016-06-13] MEDS: ALLOPURINOL 100 MG TAB PO SCH (07:58)
[2016-06-13] MEDS: METOPROLOL (TOPROL-XL) 50 MG TAB PO SCH (07:59)
[2016-06-13] MEDS: COLCHICINE 0.6 MG TAB PO SCH (08:00)
[2016-06-13] MEDS: FINASTERIDE 5 MG TAB PO SCH (08:00)
[2016-06-13 08:07] VITALS: BP 130/77
--- NOTE | 2016-06-13 09:28 | GENMEDPROG ---
Chief Complaint: less sob Notes Reviewed: Yes Events from last night noted and discussed with Clinical Staff Current Medication List: Reviewed Currently: Reports: NAVARRO, SOB DVT Prophylaxis: Yes - Physical Examination Vital Signs and I&O: Last Vital Signs Temp 98.1 F 06/13/16 06:00 Pulse 81 06/13/16 09:23 Resp 20 06/13/16 06:00 BP 130/77 06/13/16 07:55 Pulse Ox 95 06/13/16 02:00 Oxygen Pulse Oxygen Saturation 95 O2 Device Room Air Oxygen Flow Rate Fraction of Inspired Oxygen ( FIO2) Intake & Output 06/10/16 06/11/16 06/12/16 06/13/16 23:59 23:59 23:59 23:59 Intake Total 1480 1200 820 Output Total 575 1200 2325 700 Balance 905 -1200 -1125 120 Patient's weight 91.081 kg 91.081 kg General: Alert, Oriented x3, No acute distress, Well appearing, Well nourished HEENT: Normal (Normocephalic, atraumatic;EOMI.Sclera white, Nares patent, without discharge or bleeding. No oropharyngeal lesions or erythema. Mucous membranes are dry.) Neck: Non-tender, Full range of motion, Normal Trachea alignment, Normal inspection (No cervical lymphadenopathy. No supraclavicular lymphadenopathy.), No Masses palpable, Supple Lymphatics: Normal Respiratory: Diminished, Rales Cardiovascular: Regular rate and rhythm (No bradycardia or tachycardia), Normal S1, No Gallops,Rubs/Murmurs, Normal S2, Good Pedal Pulses (DP pulses 2+ bilaterally) GI: Normal bowel sounds (normal active sounds), Soft (non-distended), Non tender , No hepatospenomegaly, No masses Extremities/Musculoskeletal: Normal pulses (DP pulses 2+ bilaterally) Skin: Warm,Dry and Intact, No rashes, No significant lesion Neurological: Strength at 5/5 X4 ext (Motor 5/5 throughout.), Normal tone, Cranial nerves 3-12 NL ( 2-12 grossly intact.) Psych/Mental Status: Appropriate, Normal Affect, Disoriented (correct date but not sure of place) Lab/DI/Studies Reviewed: 06/13/16 06:00 06/13/16 06:00 Laboratory Results - last 24 hr 06/12/16 06/12/1606/12/17 12:08 17:06 20:06 WBC RBC Hgb Hct MCV MCH MCHC RDW Plt Count MPV Sodium Potassium Chloride Carbon Dioxide Anion Gap BUN Creatinine Estimated GFR (MDRD) Glucose POC Capillary Glucose 150 H 115 H 179 H Calculated Osmolality Calcium Qra-E-Yelmmltpmbv Pept Stool Occult Blood 06/13/16 06/13/16 06/13/16 05:44 06:00 06:00 WBC 8.9 RBC 3.63 L Hgb 11.5 L Hct 34.2 L MCV 94 MCH 31.6 MCHC 33.6 RDW 14.5 Plt Count 153 MPV 10.3 Sodium 139 Potassium 3.8 Chloride 100 Carbon Dioxide 30 Anion Gap 13 BUN 41 H Creatinine 2.40 H Estimated GFR (MDRD) 26 L Glucose 140 H POC Capillary Glucose 49 L* Calculated Osmolality 280 Calcium 8.1 L Wyw-I-Tbkfhimsqqi Pept 37499 H Stool Occult Blood 06/13/16 06/13/16 06:38 07:20 WBC RBC Hgb Hct MCV MCH MCHC RDW Plt Count MPV Sodium Potassium Chloride Carbon Dioxide Anion Gap BUN Creatinine Estimated GFR (MDRD) Glucose POC Capillary Glucose 86 Calculated Osmolality Calcium Rzx-N-Itwhqypubys Pept Stool Occult Blood Pos H - Assessment (1) Acute on chronic kidney failure Acute N17.9 - ACUTE KIDNEY FAILURE, UNSPECIFIED; N18.9 - CHRONIC KIDNEY DISEASE, UNSPECIFIED Comment/Plan: Avoid nephro toxic agents, consider gentle hydration. Patient also has a history of urinary retention, Gallardo catheter removed yesterday will check for postvoid residuals. (2) CAD (coronary artery disease) Acute I25.10 - ATHSCL HEART DISEASE OF [place] CORONARY ARTERY W/O ANG PCTRS Qualifiers: Coronary Disease-Associated Artery/Lesion type: [place] artery [place] vs. transplanted heart: [place] heart Associated angina: without angina Qualified Code(s): I25.10 - Atherosclerotic heart disease of [place] coronary artery without angina pectoris Comment/Plan: Noted continue medical management (3) Urinary retention with incomplete bladder emptying Acute R33.9 - RETENTION OF URINE, UNSPECIFIED Comment/Plan: Patient with a long history of urinary retention. He has had a Gallardo catheter in place for several months. Catheter was removed however now he is having difficulty with continued retention. He has had multiple in and out catheterization with greater than a L and greater than 750 mL. Coude catheter was placed last night. I believe patient will require outpatient urology evaluation going forward. I do not believe that he will be able to function well without a Gallardo catheter at this point. (4) Atrial fibrillation Chronic I48.91 - UNSPECIFIED ATRIAL FIBRILLATION Qualifiers: Atrial fibrillation type: chronic Qualified Code(s): I48.2 - Chronic atrial fibrillation Comment/Plan: He is rate controlled on beta-deidre. Not a candidate for anticoagulation. This is a recent diagnosis. (5) Cardiomyopathy Chronic I42.9 - CARDIOMYOPATHY, UNSPECIFIED Qualifiers: Cardiomyopathy type: ischemic Qualified Code(s): I25.5 - Ischemic cardiomyopathy (6) Congestive heart failure Active I50.9 - HEART FAILURE, UNSPECIFIED Comment/Plan: Without evidence of trace fluid overload. Disposition Plan: Likely to [facility]. Case Care Discussed with: Patient, Nursing Staff, Resource Management Education/Counseling Given To: Patient Education/Counseling Given Regarding: Diagnosis, Treatment Total Time: 39 min Critical Care: No Code: 34991 (12+)
[2016-06-13 10:26] VITALS: TEMP 98.8
[2016-06-13 11:14] VITALS: PULSE 93
--- NOTE | 2016-06-13 11:43 | PCM.DCS92 ---
- Final/Secondary Discharge Diagnosis (1) Acute on chronic kidney failure Acute N17.9 - ACUTE KIDNEY FAILURE, UNSPECIFIED; N18.9 - CHRONIC KIDNEY DISEASE, UNSPECIFIED Present on Admission: Yes Comment: Avoid nephro toxic agents, consider gentle hydration. Patient also has a history of urinary retention requiring custodial cath and f/u w/ urology. (2) CAD (coronary artery disease) Acute I25.10 - ATHSCL HEART DISEASE OF [place] CORONARY ARTERY W/O ANG PCTRS Present on Admission: Yes [place] artery [place] heart without angina I25.10 - Atherosclerotic heart disease of [place] coronary artery without angina pectoris Comment: Noted continue medical management (3) Urinary retention with incomplete bladder emptying Acute R33.9 - RETENTION OF URINE, UNSPECIFIED Present on Admission: Yes Comment: Patient with a long history of urinary retention. He has had a Gallardo catheter in place for several months. Catheter was removed however now he is having difficulty with continued retention. He has had multiple in and out catheterization with greater than a L and greater than 750 mL. Coude catheter was placed last night. I believe patient will require outpatient urology evaluation going forward. I do not believe that he will be able to function well without a Gallardo catheter at this point. (4) Atrial fibrillation Chronic I48.91 - UNSPECIFIED ATRIAL FIBRILLATION Present on Admission: Yes chronic I48.2 - Chronic atrial fibrillation Comment: He is rate controlled on beta-deidre. Not a candidate for anticoagulation. This is a recent diagnosis. (5) Cardiomyopathy Chronic I42.9 - CARDIOMYOPATHY, UNSPECIFIED Present on Admission: Yes ischemic I25.5 - Ischemic cardiomyopathy (6) Congestive heart failure Active I50.9 - HEART FAILURE, UNSPECIFIED Present on Admission: Yes Comment: Without evidence of trace fluid overload. (7) Demand ischemia Acute I24.8 - OTHER FORMS OF ACUTE ISCHEMIC HEART DISEASE Present on Admission: Yes Comment: Noted on admission troponin up to > 1. Discharge Disposition: Discharge w/ Home Health Discharge Condition: Improved Cognitive Discharge Status: Cognitive deficits prevent decision making for safety. Fuctional Discharge Status: Walker Assistance Physician Follow up/Referrals: [facility] [Primary Care Provider] - F/U Facility Physician New Prescriptions: Albuterol/Ipratropium Neb [Duoneb] 3 ml NEB RTQ6 #120 nebu Chlorhexidine Gluconate [Hibiclens Topical Solution] 0 oz TOP HS #1 bot Humalog Mix 75/25 0 units SQ .SLIDING SCALE #1 vial Isosorbide Mononitrate [Imdur] 30 mg PO DAILY@0600 #30 tablet Metoprolol Tartrate [Lopressor] 50 mg PO BID #60 tablet Nitroglycerin Sublingual Tab [NTG (NitroStat Sublingual Tab)] 0.4 mg SL PRN PRN #100 tablet PRN Reason: Chest Pain Or Discomfort Oxycodone Immediate Release [Oxycodone Immediate Release (OxyIR)] 5 mg PO Q6H PRN #10 tablet PRN Reason: MODERATE TO SEVERE PAIN Simvastatin [Zocor] 40 mg PO HS #30 tablet O2 Device: Room Air Diet at Discharge: Cardiac, Heart Healthy Activity: As Tolerated - DC Summary Notes HPI/Notes: PT PRESENTS TODAY WITH SUDDEN 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 PT HAS SIGNIFICANT CARDIAC HISTORY INCLUDING CABG X 3 AND STENT X 2, PER PIECE OF PAPER PT BROUGHT WITH HIM. PT POOR HISTORIAN AND ARRIVED VIA EMS, SO HPI/PMH DIFFICULT. FAMILY SHOULD ARRIVE SOON. PT DENIES ANY SYMPTOMS NOW AND STATES THAT HIS PAIN WAS RELIEVED AT HOME WITH [address] Macias's consult: Patient is an 81 years old gentleman with ischemic cardiomyopathy he also got history of CVA as well as some dementia. History is very difficult to obtain from him he apparently presented to the emergency with chief complaint of palpitations he also complained of having chest pain. He is supposed to have a stress test done today however his biochemical markers namely troponin I became abnormal and I was asked to see him. He also does have some chronic kidney dysfunction as well as paroxysmal atrial fibrillation and he is actually in atrial fibrillation today. Again is very difficult to obtain history from him he does complain of had being some chest pain does not have any right now but he can't give me any details about this. He clearly states that palpitations was the leading complained that he has had. He is followed by group in [place]. Apparently 3 or 4 weeks ago he was there and check was done he was fine to be okay from what I can understand he did have his defibrillator checked then this is a [place] device. At the moment of my interview he is asymptomatic. He knows where he is he is not initially sure why he is in the hospital. Hospital Course Note:: Discharge summary on patient named BRETT LINDO admitted to [facility] on 06/08/16 by Brant Martínez MD. Date of discharge is 06/13/2016. 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 He was scheduled for a stress test and Cardiology was consulted for further evaluation of him. Of note he is on metoprolol and had positive troponins likely related to demand ischemia from the tachycardia associated with his atrial fib. He was diuresed further during hospitalization And a coude catheter had to be placed in his bladder for outlet obstruction. Follow up with Urology is necessary. He did have some symptoms of orthostatic hypotension and with his renal failure as well as tendency to fall he was felt not to be a candidate for Cory inhibition, arbs or anticoagulation. With improvement he was ready to be discharged today. Discussed with Cardiology and due to his renal failure and comorbidities it was felt he should not be put through cardiac catheterization. Medical therapy with heart rate control would be the best option for him. cc: Dr. García Total Time: 41 min Code: 42842 (>30min.) - Physical Exam Vital Signs: Last Vital Signs Temp 98.8 F 06/13/16 10:25 Pulse 93 06/13/16 11:12 Resp 20 06/13/16 06:00 BP 130/77 06/13/16 07:55 Pulse Ox 95 06/13/16 02:00 Oxygen Pulse Oxygen Saturation 95 O2 Device Room Air Oxygen Flow Rate Fraction of Inspired Oxygen ( FIO2) Constitutional: Alert, Distress Oriented to: Time, Person, Place - HEENT Head: Normal Eye: Normal Oropharynx: Normal (Pharynx: Moist without exudate,Gums-no swelling, No oropharyngeal lesions or erythema, Mucous membranes are dry.) ENT EAC: Normal (No oropharyngeal lesions or erythema. Mucous membranes are dry. ) TMJ: Normal Nose: No Symptoms Reported (Nares patent, without discharge or bleeding.) - Respiratory/Cardiovascular Respiratory: Diminished, Rales. negative: Rhonchi, Wheezes Cardiovascular: Irregular. negative: Bradycardia, Tachycardia, Diastolic murmur , Systolic murmur - GI Auscultation: Normal (NABS) Palpation: Normal Tenderness: Non tender Chou's Sign: Negative - Musculoskeletal Back: Normal Extremities: Normal - Integumentary Skin: Normal (Warm dry no rashes) Lymphatics: Normal - Neurologic Memory Impaired: Normal Cerebellar: Normal, Unable to Test Mood Description: Anxious, Appropriate Thought: Coherent Perception: Normal (Normal and appropriate affect)
== END 2016-06-13 13:53 | DRG 308 ==
LOC: ED 08:54 → ICU 10:54
PROVIDERS: ADMIT Hospitalist; ATTEND Internal Medicine
DX: I48.2 Chronic atrial fibrillation (principal); I62.03 Nontraumatic chronic subdural hemorrhage; N17.9 Acute kidney failure, unspecified; I24.8 Other forms of acute ischemic heart disease; I13.0 Hypertensive heart and chronic kidney disease with heart failure and stage 1 through stage 4 chronic kidney disease, or unspecified chronic kidney disease; I50.40 Unspecified combined systolic (congestive) and diastolic (congestive) heart failure; F03.90 Unspecified dementia, unspecified severity, without behavioral disturbance, psychotic disturbance, mood disturbance, and anxiety; I25.10 Atherosclerotic heart disease of native coronary artery without angina pectoris; I69.90 Unspecified sequelae of unspecified cerebrovascular disease; Z95.810 Presence of automatic (implantable) cardiac defibrillator; E78.5 Hyperlipidemia, unspecified; I25.5 Ischemic cardiomyopathy; Z95.1 Presence of aortocoronary bypass graft; E11.22 Type 2 diabetes mellitus with diabetic chronic kidney disease; N18.9 Chronic kidney disease, unspecified; N13.9 Obstructive and reflux uropathy, unspecified; R33.9 Retention of urine, unspecified; Z79.4 Long term (current) use of insulin; I25.2 Old myocardial infarction; R56.9 Unspecified convulsions; Z91.81 History of falling; Z79.899 Other long term (current) drug therapy; I95.1 Orthostatic hypotension; Z95.5 Presence of coronary angioplasty implant and graft
CPT/HCPCS: 36415; 51798; 71010; 80048; 80053; 80061; 81001; 82043; 82272; 82550; 82962; 83036; 83735; 83880; 84484; 85025; 85027; 85610; 85730; 87641; 93005; 94640; 96372; 96374; 97162; 99285; A4216; G0237; J1940; J2270; J2785; J3490; J7060; J7620

== ENCOUNTER 2016-07-16 17:30 | Inpatient (IN) | payer OTHER ==
[2016-07-16] MEDS ORDERED: Levofloxacin 750 mg/150 ml D5W 750 MG/150 ML RTU IV ONE (18:12)
[2016-07-16] MEDS ORDERED: Clindamycin 900 mg/D5W 50 ml 900 MG/50 ML IVB IV ONE (18:13)
--- NOTE | 2016-07-16 18:18 | EDPRACDOC ---
<Jenn Luciano Karlo - Last Filed: 07/16/16 19:07> - General Information Information Source: Patient - History of Present Illness Onset: TODAY HPI: Pt from [facility] c/o AMS and drooling starting at unknown time. Pt has hx of CVA x 2, SC with stent placement, CABG, pacemaker/defib, seizures, Afib, CHF, DM , renal failure. Pt normally coherent and able to ambulate with walker, normally on RA. 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 Home Medications: Home Medications Finasteride [Proscar] 5 mg PO DAILY 09/02/12 Tamsulosin HCl [Flomax] 0.4 mg PO BID 03/03/13 Furosemide [Lasix] 80 mg PO BID 03/25/13 HydrALAZINE (Cardiovascular) [Apresoline] 25 mg PO TID 03/25/13 Insulin Glargine,Hum.rec.anlog [Lantus] 45 units SQ HS 03/25/13 Allopurinol [Zyloprim] 100 mg PO BID 04/27/13 Colchicine [Colcrys] 0.3 mg PO DAILY 04/27/13 Gabapentin [Neurontin] 600 mg PO QHS 04/27/13 Levetiracetam [Keppra] 500 mg PO BID 30 Days 04/27/13 Butalbital/Acetaminophen [Bupap 50 mg-300 mg Tablet] 1 - 2 tab PO Q4H PRN Cyclobenzaprine HCl [Flexeril] 10 mg PO Q6H PRN 07/12/15 Lorazepam [Lorazepam Intensol] 2 mg PO Q4H PRN 07/12/15 Isosorbide Mononitrate [Imdur] 30 mg PO DAILY@0600 #30 tablet 06/13/16 Albuterol/Ipratropium Neb [Duoneb] 3 ml NEB Q4H PRN 07/16/16 Bethanechol Chloride 50 mg PO BID 07/16/16 Cetirizine HCl 10 mg PO DAILY 07/16/16 Cholecalciferol (Vitamin D3) [Vitamin D3] 1,000 unit PO DAILY 07/16/16 Diltiazem HCl [Diltiazem 24Hr ER] 240 mg PO DAILY 07/16/16 Famotidine 20 mg PO DAILY 07/16/16 Insulin Lispro [Humalog] 0 units SQ .TIDAC SLIDING SCALE 07/16/16 Lorazepam [Lorazepam Intensol] 0.5 mg PO Q4H PRN 07/16/16 Nitroglycerin Sublingual Tab [NTG (NitroStat Sublingual Tab)] 0.4 mg SL Q5MX3 PRN 07/16/16 Oxycodone Immediate Release [Oxycodone Immediate Release (OxyIR)] 10 mg PO Q6H 07/16/16 Simvastatin [Zocor] 40 mg PO .QHS SEE COMMENTS 07/16/16 Allergies/Adverse Reactions: Allergies Allergy/AdvReac Type Severity Reaction Status Date / Time Penicillins Allergy Unknown Verified 07/16/16 18:00 - Treatment Prior to ED Arrival Reported Medications/Treatment 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 Treatment ALS IV Yes IV Fluid Volume Administered 250 by EMS Comment 20J RT HAND <Jenn Luciano - Last Filed: 07/16/16 19:07> - Treatment Prior to ED Arrival Reported Medications/Treatment 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 Treatment ALS IV Yes IV Fluid Volume Administered 250 by EMS Comment 20J RT HAND <Hakeem Armstrong - Last Filed: 07/17/16 05:10> ED Past Medical History - History Reviewed Yes Nurses notes reviewed and agree except as marked - Patient Medical History Neurological History: Reports: Cerebrovascular Accident (2013, hemorrhagic w/ seizures), Dementia Cardiac History: Reports: Coronary Artery Disease, Atrial Fibrillation, Hypertension, Congestive Heart Failure, Heart Attack (x2 2003), CABG, Hypercholesterolemia, Internal Defibrillator, Cardiomyopathy Respiratory History: Reports: Pneumonia GI/ History: Reports: Renal Failure (Chronic), Urinary Tract Infection, Gastroesophageal Reflux, BPH Musculoskeletal History: Reports: Gout Psychological History: Denies: Depression, Substance Use Disorder Systemic History: Reports: Diabetes (INSULIN DEPENDANT). Denies: Cancer Surgical History: Reports: CABG, Tonsillectomy/Adnoidectomy, Other (Pacemaker/ AICD implantation) - Family Medical History Reports: Cancer (FATHER), Stroke (MOTHER), Cardiac Disorders (FATHER, [place]) - Social Medical History Smoking Status: Never smoker Social History: Denies: Substance Use Disorder <Hakeem Armstrong - Last Filed: 07/17/16 05:10> EDM Review of Systems - Review of Systems ROS Negative Except as Marked: Yes All systems reviewed and were negative except as marked Mouth: Drooling Respiratory: Shortness of Breath Neurological: Seizure, Weakness, Changes in Orientation Endocrine: Diabetes <Hakeem Armstrong - Last Filed: 07/17/16 05:10> - Physical Exam Last recorded Vital Signs: Last Vital Signs Temp 97.8 F 07/16/16 17:51 Pulse 98 07/16/16 17:51 Resp 18 07/16/16 18:06 BP 142/94 07/16/16 17:51 Pulse Ox 92 07/16/16 17:51 Oxygen Pulse Oxygen Saturation 92 O2 Device Nasal Cannula Oxygen Flow Rate 4 Fraction of Inspired Oxygen ( FIO2) <Jenn Luciano - Last Filed: 07/16/16 19:07> - Physical Exam Constitutional: Decreased Consciousness, Somnolent Last recorded Vital Signs: Last Vital Signs Temp 97.8 F 07/16/16 17:51 Pulse 98 07/16/16 17:51 Resp 18 07/16/16 18:06 BP 142/94 07/16/16 17:51 Pulse Ox 92 07/16/16 17:51 Oxygen Pulse Oxygen Saturation 92 O2 Device Nasal Cannula Oxygen Flow Rate 4 Fraction of Inspired Oxygen ( FIO2) - HEENT Head: Normal - Respiratory/Cardiovascular Respiratory: Normal - CTA Cardiovascular: Irregular - Musculoskeletal Extremities: Normal <Hakeem Armstrong - Last Filed: 07/17/16 05:10> - Results Puncture Site Right radial 07/16/16 18:35 pH 7.460 pH UNITS (7.35-7.45) H 07/16/16 18:35 pCO2 34.0 mmHg (35-45) L 07/16/16 18:35 pO2 53.0 mmHg (80-100) L 07/16/16 18:35 HCO3 24.2 MMOL/L (22-26) 07/16/16 18:35 Total CO2 25.2 MMOL/L (23-27) 07/16/16 18:35 Base Excess 0.8 (+/- 2) 07/16/16 18:35 FiO2 % 21% 07/16/16 18:35 Specimen Drawn By Piksa 07/16/16 18:35 Lab Results 07/16/16 18:35 Puncture Site Right radial pH 7.460 H pCO2 34.0 L pO2 53.0 L HCO3 24.2 Total CO2 25.2 Base Excess 0.8 FiO2 % 21% Specimen Drawn By Piksa - Diagnostic Imaging Head Image interpreted by: Radiologist Patient Name: BRTET LINDO LOC: ED : 1935 AGE: 81 Order Date:07/16/16 Date of Service:11/24 Report # [id number] Ord Physician: Hakeem Armstrong Exam # [id number] Emergency Physician: Provider,ER Exam(s): [id number] CT/CT HEAD W/O CM CLINICAL DATA: 81-year-old male with altered mental status and history of seizures. EXAM: CT HEAD WITHOUT CONTRAST TECHNIQUE: Contiguous axial images were obtained from the base of the skull through the vertex without intravenous contrast. COMPARISON: Head CT dated 12/02/2015 FINDINGS: Stable large area of old infarct and encephalomalacia noted in the left frontal lobe. The ventricles are dilated and the sulci are prominent compatible with age-related atrophy. Mild periventricular and deep white matter hypodensities represent chronic microvascular ischemic changes. There is no intracranial hemorrhage. No mass effect or midline shift identified. There is mild mucoperiosteal thickening of paranasal sinuses. No air-fluid level. There is opacification of multiple mastoid air cells on the left. The right mastoid air cells are well aerated. The calvarium is intact. IMPRESSION: No acute intracranial hemorrhage. Age-related atrophy and chronic microvascular ischemic disease. Stable large left frontal lobe old infarct. If symptoms persist and there are no contraindications, MRI may provide better evaluation if clinically indicated. Electronically Signed By: Too Bonner M.D. On: 07/16/2016 18:57 Electronically Signed By: Too Bonner MD Electronically Signed Date/Time: [id number] Dictate Date/Time: 07/16/16 081 Technologist: Natalya Dougherty Transcribed By: Claudine Transcribed Date/Time: 07/16/16 1857 Chest Image interpreted by: Radiologist Patient Name: BRETT LINDO LOC: ED : 1935 AGE: 81 Order Date:07/16/16 Date of Service:11/24 Report # [id number] Ord Physician: Jenn Luciano MD Exam # [id number] Emergency Physician: Provider,ER Exam(s): [id number] RAD/DG CHEST PORTABLE CLINICAL DATA: Shortness of breath. Altered mental status. EXAM: PORTABLE CHEST 1 VIEW COMPARISON: 06/10/2016 FINDINGS: Bilateral airspace disease, likely edema. Right AICD remains in place, unchanged. Cardiomegaly. Small left pleural effusion. IMPRESSION: Findings compatible with moderate edema/CHF. Small left effusion. Electronically Signed By: Alvin Car M.D. On: 07/16/2016 18:20 Electronically Signed By: Alvin Car MD Electronically Signed Date/Time: 822 Dictate Date/Time: 07/16/161818 Technologist: Sangita Fenton Transcribed By: Claudien Transcribed Date/Time: 07/16/161819 <Jenn Luciano - Last Filed: 07/16/16 19:07> - Results 07/17/16 01:40 07/17/16 01:40 - EKG EKG #1 EKG Time: 17:54 -: Yes EKG interpreted by me Rate: bpm: 93 Rhythm: Afib ST: Nonsp Comparison: 06/08/16 (Afib RVR) <Hakeem Armstrong - Last Filed: 07/17/16 05:10> Decision to Admit Time: 19:15 Decision to admit date: 07/16/16 Decision to admit: from ED - Physician Consulted Hospitalist Time Called: 19:09 Provider Called: James Ghosh Time Inspector [employer] Returned Call: 19:15 <Jenn Luciano - Last Filed: 07/16/16 19:07> <Hakeem Armstrong - Last Filed: 07/17/16 05:10> - Departure Final Diagnosis: Hypoxia, Aspiration pneumonitis, Acute respiratory failure with hypoxia Acute renal failure Qualifiers: Acute renal failure type: unspecified Qualified Code(s): N17.9 - Acute kidney failure, unspecified Altered mental status Qualifiers: Altered mental status type: unspecified Qualified Code(s): R41.82 - Altered mental status, unspecified
--- NOTE | 2016-07-16 18:22 | DIRPT ---
CLINICAL DATA: Shortness of breath. Altered mental status. EXAM: PORTABLE CHEST 1 VIEW COMPARISON: 06/10/2016 FINDINGS: Bilateral airspace disease, likely edema. Right AICD remains in place, unchanged. Cardiomegaly. Small left pleural effusion. IMPRESSION: Findings compatible with moderate edema/CHF. Small left effusion. Electronically Signed By: Alvin Car M.D. On: 07/16/2016 18:20
[2016-07-16 18:41] LABS: ALLEN'S TEST PASS; BEb 0.8 (+/- 2); TCO2 25.2 MMOL/L (23-27)
[2016-07-16 18:42] LABS: ABG Draw Site Right Radial
--- NOTE | 2016-07-16 19:00 | DIRPT ---
CLINICAL DATA: 81-year-old male with altered mental status and history of seizures. EXAM: CT HEAD WITHOUT CONTRAST TECHNIQUE: Contiguous axial images were obtained from the base of the skull through the vertex without intravenous contrast. COMPARISON: Head CT dated 12/02/2015 FINDINGS: Stable large area of old infarct and encephalomalacia noted in the left frontal lobe. The ventricles are dilated and the sulci are prominent compatible with age-related atrophy. Mild periventricular and deep white matter hypodensities represent chronic microvascular ischemic changes. There is no intracranial hemorrhage. No mass effect or midline shift identified. There is mild mucoperiosteal thickening of paranasal sinuses. No air-fluid level. There is opacification of multiple mastoid air cells on the left. The right mastoid air cells are well aerated. The calvarium is intact. IMPRESSION: No acute intracranial hemorrhage. Age-related atrophy and chronic microvascular ischemic disease. Stable large left frontal lobe old infarct. If symptoms persist and there are no contraindications, MRI may provide better evaluation if clinically indicated. Electronically Signed By: Too Bonner M.D. On: 07/16/2016 18:57
[2016-07-16 20:38] LABS: PARTIAL THROMB. TIME 28.2 SEC (22-35); PT-INR 1.3
--- NOTE | 2016-07-16 20:40 | HISTPHYS ---
- Chief Complaint altered mental status - History of Present Illness This is an 81-year-old gentleman with a history of atrial fibrillation, CHF, seizure and recent urinary tract infection was being admitted to the hospital [facility] due to severely altered mental status. Patient's daughter is at the bedside in the emergency department [facility], and is a registered nurse here at this hospital. She tells me that the patient has recovered decently well since his last hospital stay here, and had been participating again in the Stay Well program. She said she dropped him off yesterday at a respite [facility] where she had plan to keep him for a few days, and he was pretty much in his usual state, alert and oriented and ambulatory with his walker. However, this morning when the [facility] semi truck driver came to pick him up the patient was extremely lethargic, unable to stand and confused. They noted that he was drooling quite a bit. She went to black pickler her father on her own, and they noted that he had to be physically placed in the car since he was so weak and confused and unresponsive. Here in the emergency department, he had a repeat CT scan of the head which is not show any acute infarction or hemorrhage. There is some concern for aspiration pneumonitis since he has been drooling copiously, unable to manage his own secretions. He has not been coughing. There have not been any recent fevers, chills, nausea or vomiting. The patient has a history of seizures, and is on p.o. Keppra, he had a seizure earlier today. - Medical History Cardiac History: Reports: Coronary Artery Disease, Atrial Fibrillation, Hypertension, Congestive Heart Failure, Heart Attack (x2 2003), CABG, Hypercholesterolemia, Internal Defibrillator, Cardiomyopathy Respiratory History: Reports: Pneumonia GI/ History: Reports: Renal Failure (Chronic), Urinary Tract Infection, Gastroesophageal Reflux, BPH Musculoskeletal History: Reports: Gout Systemic History: Reports: Diabetes (INSULIN DEPENDANT). Denies: Cancer Neurological History: Reports: Cerebrovascular Accident (2013, hemorrhagic w/ seizures), Dementia Psychological History: Denies: Depression, Substance Use Disorder - Surgical History Reports: CABG, Tonsillectomy/Adnoidectomy, Other (Pacemaker/AICD implantation) - Medictions/Allergies Allergies Penicillins Allergy (Verified 07/16/16 18:00) Unknown told not to ever take it Home Medications Finasteride [Proscar] 5 mg PO DAILY 09/02/12 Tamsulosin HCl [Flomax] 0.4 mg PO BID 03/03/13 Furosemide [Lasix] 80 mg PO BID 03/25/13 HydrALAZINE (Cardiovascular) [Apresoline] 25 mg PO TID 03/25/13 Insulin Glargine,Hum.rec.anlog [Lantus] 45 units SQ HS 03/25/13 Allopurinol [Zyloprim] 100 mg PO BID 04/27/13 Colchicine [Colcrys] 0.3 mg PO DAILY 04/27/13 Gabapentin [Neurontin] 600 mg PO QHS 04/27/13 Levetiracetam [Keppra] 500 mg PO BID 30 Days 04/27/13 Butalbital/Acetaminophen [Bupap 50 mg-300 mg Tablet] 1 - 2 tab PO Q4H PRN Cyclobenzaprine HCl [Flexeril] 10 mg PO Q6H PRN 07/12/15 Lorazepam [Lorazepam Intensol] 2 mg PO Q4H PRN 07/12/15 Isosorbide Mononitrate [Imdur] 30 mg PO DAILY@0600 #30 tablet 06/13/16 Albuterol/Ipratropium Neb [Duoneb] 3 ml NEB Q4H PRN 07/16/16 Bethanechol Chloride 50 mg PO BID 07/16/16 Cetirizine HCl 10 mg PO DAILY 07/16/16 Cholecalciferol (Vitamin D3) [Vitamin D3] 1,000 unit PO DAILY 07/16/16 Diltiazem HCl [Diltiazem 24Hr ER] 240 mg PO DAILY 07/16/16 Famotidine 20 mg PO DAILY 07/16/16 Insulin Lispro [Humalog] 0 units SQ .TIDAC SLIDING SCALE 07/16/16 Lorazepam [Lorazepam Intensol] 0.5 mg PO Q4H PRN 07/16/16 Nitroglycerin Sublingual Tab [NTG (NitroStat Sublingual Tab)] 0.4 mg SL Q5MX3 PRN 07/16/16 Oxycodone Immediate Release [Oxycodone Immediate Release (OxyIR)] 10 mg PO Q6H 07/16/16 Simvastatin [Zocor] 40 mg PO .QHS SEE COMMENTS 07/16/16 - Family History Reports: Cancer (FATHER), Stroke (MOTHER), Cardiac Disorders (FATHER, SIBLINGS) - Social History Smoking Status: Never smoker Social History: Denies: Substance Use Disorder - Review of Systems Yes Review of systems cannot be obtained due to the patient's medical condition - Physical Exam Vital Signs: Initial Vitals Temperature 97.8 F 07/16/16 17:51 Pulse Rate 98 07/16/16 17:51 Respiratory Rate 18 07/16/16 17:51 Blood Pressure 142/94 07/16/16 17:51 Pulse Oxygen Saturation 92 07/16/16 17:51 Constitutional: Decreased Consciousness Oriented to: Not Oriented, Unable to Test - HEENT Head: Normal (normocephalic,atraumatic, trachea midline) Eye: Normal (EOMI, Sclera white) Oropharynx: Normal (moist) Nose: No Symptoms Reported (without discharge or bleeding) Respiratory: Normal - CTA (Clear to auscultation bilaterally, no wheezing,rales or rhonchi. No use of accessory muscles) Cardiovascular: Normal (RRR, no murmurs, rubs or gallops) - GI Palpation: Normal (soft, non distended and nontender) - Integumentary Skin: Normal (no rashes or lesions) - Focused CV Perfusion Exam Vital Signs: Last Vital Signs Temp 97.8 F 07/16/16 17:51 Pulse 79 07/16/16 19:53 Resp 18 07/16/16 19:53 BP 101/56 L 07/16/16 19:53 Pulse Ox 96 07/16/16 19:53 - Lab Results Laboratory Tests 07/16/16 07/16/16 07/16/16 13:38 13:38 18:35 WBC 11.1 H Hgb 11.1 L Hct 34.3 L Plt Count 231 pH 7.460 H pCO2 34.0 L pO2 53.0 L Potassium 4.2 BUN 62 H Creatinine 3.80 H Eoe-R-Hmyokbbwhoh Pept 07/16/16 19:07 WBC Hgb Hct Plt Count pH pCO2 pO2 Potassium BUN Creatinine [id number]-F-Qudadgdtncg Pept 19475 H - Diagnostic Findings CXR: Bilateral airspace disease, likely edema. Right AICD remains in place, unchanged. Cardiomegaly. Small left pleural effusion. CT Head: Reviewed, evidence of prior infarction, but no acute CVA or hemorrhage. - Assessment (1) Altered mental status R41.82 - ALTERED MENTAL STATUS, UNSPECIFIED Acute Qualifiers: Altered mental status type: unspecified Qualified Code(s): R41.82 - Altered mental status, unspecified Unclear etiology, the patient had recent witnessed seizure, also now with altered mental status possibly related to aspiration. There was concern for acute stroke, but none seen on CT scan tonight. Discussed with his daughter at the bedside, who is a PCU nurse at this institution, she would like to minimize any further investigation into the cause of his altered mental status, other than to treat with antibiotics per her father's wishes. If he is not improving , she is very interested in pursuing hospice services. (2) Acute respiratory failure with hypoxia J96.01 - ACUTE RESPIRATORY FAILURE WITH HYPOXIA Acute Likely due to pneumonitis from possible aspiration (3) Aspiration pneumonitis J69.0 - PNEUMONITIS DUE TO INHALATION OF FOOD AND VOMIT Acute There is concern for aspiration pneumonitis, given the fact that his mental status is altered, he has been drooling a lot and unable to manage his own secretions in the last couple days. Treating empirically for possible aspiration pneumonia, not seen on x-ray tonight. Will recheck a chest x-ray in 24 hours. (4) Congestive heart failure I50.9 - HEART FAILURE, UNSPECIFIED Active Without evidence of trace fluid overload. (5) Acute on chronic kidney failure N17.9 - ACUTE KIDNEY FAILURE, UNSPECIFIED; N18.9 - CHRONIC KIDNEY DISEASE, UNSPECIFIED Acute Avoid nephro toxic agents, consider gentle hydration. Patient also has a history of urinary retention requiring detention cath and f/ u w/ urology. (6) CAD (coronary artery disease) I25.10 - ATHSCL HEART DISEASE OF [place] CORONARY ARTERY W/O ANG PCTRS Acute Qualifiers: Noted continue medical management (7) Atrial fibrillation I48.91 - UNSPECIFIED ATRIAL FIBRILLATION Chronic Qualifiers: He is rate controlled on beta-deidre. Not a candidate for anticoagulation due to prior hemorrhagic stroke. This is a recent diagnosis. (8) Seizure R56.9 - UNSPECIFIED CONVULSIONS Chronic Continue home Keppra, likely exacerbated by his acute illness. Could consider increasing Keppra dosing if seizures continue. - Plan His daughter would like him to be a do not resuscitate. Case Care Discussed with: Family, Nursing Staff Total Time: 50 Critical Care: No Couseling Time (>50% in counseling/coordination): No
[2016-07-16 20:46] LABS: AMORPHOUS OCC; LEUKOCYTES/URINE 2+ (NEGATIVE); NITRITE/URINE NEG (NEGATIVE); URINE OCCULT BLOOD 1+ (NEG/TRACE); WBC/URINE 20-30 (0-2)
[2016-07-16] MEDS ORDERED: Albuterol/Ipratropium Neb 3 ML NEB NEB PRN (20:47)
[2016-07-16] MEDS ORDERED: CYCLOBENZAPRINE 10 MG TAB PO PRN (20:47)
[2016-07-16] MEDS ORDERED: ONDANSETRON HCL 4 MG/2 ML VIAL IV PRN (20:48)
[2016-07-16] MEDS ORDERED: ACETAMINOPHEN 325 MG SUPP PR PRN (20:49)
[2016-07-16] MEDS ORDERED: hydrALAZINE 20 MG/ML VIAL IV PRN (20:51)
[2016-07-16] MEDS ORDERED: GLUCAGON 1 MG VIAL SQ PRN (20:52)
[2016-07-16] MEDS ORDERED: DEXTROSE 25 GM/50 ML PFS IV PRN (20:52)
[2016-07-16] MEDS ORDERED: GLUCOSE (ORAL GEL) 15 GM TUBE PO PRN (20:52)
[2016-07-16] MEDS ORDERED: Non-Formulary Medication ITEM (Gabapentin [Neurontin] 600 MG) PO SCH (21:00)
[2016-07-16] MEDS ORDERED: BETHANECHOL CHLORIDE 50 MG PO SCH (21:00)
[2016-07-16] MEDS ORDERED: ENOXAPARIN 40 MG/0.4 ML PFS SQ SCH (21:00)
[2016-07-16] MEDS ORDERED: Non-Formulary Medication ITEM (Insulin Glargine 20 UNITS) SQ SCH (21:00)
[2016-07-16] MEDS: hydrALAZINE 25 MG TAB PO SCH (21:56)
[2016-07-16] MEDS ORDERED: GLARGINE INSULIN (LANTUS) 100 UNITS/ML PEN SQ SCH (22:00)
[2016-07-16] MEDS: REGULAR INSULIN 100 UNITS/ML - 3 ML VIAL SQ SCH (22:01)
[2016-07-16] MEDS ORDERED: NS 250 ML IV ONE (22:10)
[2016-07-16] MEDS ORDERED: NS 0 ML IV ONE (22:10)
[2016-07-16] MEDS: PANTOPRAZOLE 40 MG VIAL IV SCH (22:20)
[2016-07-16] MEDS: ENOXAPARIN 30 MG/0.3 ML PFS SQ SCH (22:22)
[2016-07-17 01:51] LABS: MPV 8.7 fL (7.4-10.4)
[2016-07-17 02:01] LABS: BLOOD UREA NITROGEN 66 MG/DL (9-20); CALCIUM 8.4 MG/DL (8.4-10.2); CALCULATED OSMOLALITY 299 MOs/Kg (270-290); CHLORIDE 106 mEq/L (98-107); GLUCOSE 115 mg/dL (70-99); SODIUM LEVEL 145 mEq/L (137-146)
[2016-07-17] MEDS: Clindamycin 600 mg/D5W 50 ml 600 MG/50 ML IVB IV SCH ×4 (02:21→21:58)
[2016-07-17] MEDS: hydrALAZINE 25 MG TAB PO SCH (05:37)
[2016-07-17] MEDS: REGULAR INSULIN 100 UNITS/ML - 3 ML VIAL SQ SCH ×4 (05:38→22:09)
[2016-07-17] MEDS: ISOSORBIDE MONONITRATE 30 MG TAB PO SCH (05:38)
[2016-07-17] MEDS: FUROSEMIDE 20 MG/2 ML VIAL IV SCH ×2 (08:52→15:50)
[2016-07-17] MEDS ORDERED: BETHANECHOL 25 MG TAB PO SCH (09:00)
[2016-07-17] MEDS ORDERED: Vaccine Screening Complete SCH (12:00)
[2016-07-17] MEDS: hydrALAZINE 20 MG/ML VIAL IV SCH ×2 (13:19→17:09)
[2016-07-17] MEDS: METOPROLOL 5 MG/5 ML SDV IV SCH ×2 (13:19→17:10)
[2016-07-17] MEDS: NITROGLYCERINE 2 % OINTMENT PACK TOP SCH ×2 (13:22→17:11)
--- NOTE | 2016-07-17 15:43 | GENMEDPROG ---
Subjective Note: 81-year-old gentleman admitted to our hospital due to metabolic encephalopathy of unknown etiology. He has a history of atrial fibrillation, congestive heart failure, seizures and recurrent urinary tract infections. Patient Aquiles recently dropped discharged from our hospital and had return to participating in the stay well program. She had brought on to a respite [facility] yesterday for a few days and he was pretty much in his usual state alert oriented and ambulatory with his walker. This morning when the stable lokie driver came to pick him up the patient was lethargic and unable to stand and was very confused. She went to see him and he was weak confused and minimally responsive there is concern for aspiration pneumonitis he has been drooling copiously. This morning he has had no significant change he was seen by speech therapy is not unable to swallow safely. I have switched his medications to IV. Notes Reviewed: Yes: Events from last night noted and discussed with Clinical Staff Current Medication List: Reviewed Currently: Reports: SOB, Old Charts Reviewd. Denies: Sputum, Diarrhea, Nausea and Vomiting, Reflux Sx, Abdominal Pain, Ambulating DVT Prophylaxis: Yes - Physical Examination Vital Signs and I&O: Last Vital Signs Temp 97.3 F L 07/17/16 13:48 Pulse 100 07/17/16 13:48 Resp 20 07/17/16 13:48 BP 92/62 L 07/17/16 13:30 Pulse Ox 92 07/17/16 13:48 Oxygen Pulse Oxygen Saturation 92 O2 Device Nasal Cannula Oxygen Flow Rate 3 Fraction of Inspired Oxygen ( 3 FIO2) Intake & Output 07/14/16 07/15/16 07/16/16 07/17/16 23:59 23:59 23:59 23:59 Intake Total 150 277 Output Total 100 Balance 150 177 Patient's weight 93.621 kg General: Fatigue. negative: Alert, Oriented x3 HEENT: Normal (Normocephalic, atraumatic;EOMI.Sclera white, Nares patent, without discharge or bleeding. No oropharyngeal lesions or erythema. Mucous membranes are dry.) Neck: Non-tender, Full range of motion, Normal Trachea alignment, Normal inspection (No cervical lymphadenopathy. No supraclavicular lymphadenopathy.), No Masses palpable, Supple Lymphatics: Normal (No lymph node swelling or pain.) Respiratory: Normal - CTA. negative: Rales, Retractions, Rhonchi, Wheezes Cardiovascular: Regular rate and rhythm (No bradycardia or tachycardia), Normal S1, No Gallops,Rubs/Murmurs, Normal S2, Good Pedal Pulses (DP pulses 2+ bilaterally) GI: Normal bowel sounds (normal active sounds), Soft (non-distended), Non tender , No hepatospenomegaly, No masses Extremities/Musculoskeletal: Normal pulses (DP pulses 2+ bilaterally) Skin: Warm,Dry and Intact Neurological: Strength at 5/5 X4 ext (Motor 5/5 throughout.), Normal tone, Cranial nerves 3-12 NL ( 2-12 grossly intact.) Psych/Mental Status: Appropriate, Normal Affect Lab/DI/Studies Reviewed: Laboratory Results - last 24 hr 07/16/16 07/16/16 07/16/16 13:37 18:35 19:07 WBC RBC Hgb Hct MCV MCH MCHC RDW Plt Count MPV PT INR APTT Puncture Site Right radial pH 7.460 H pCO2 34.0 L pO2 53.0 L HCO3 24.2 Total CO2 25.2 Base Excess 0.8 FiO2 % 21% Specimen Drawn By Piksa Sodium Potassium Chloride Carbon Dioxide Anion Gap BUN Creatinine Estimated GFR (MDRD) Glucose POC Capillary Glucose Hemoglobin A1c 6.7 H Calculated Osmolality Lactic Acid Calcium Troponin I Dif-W-Mucirpwydzc Pept 48343 H Urine Color Urine Clarity Urine pH Ur Specific [place] Urine Protein Urine Glucose (UA) Urine Ketones Urine Occult Blood Urine Nitrite Urine Bilirubin Urine Urobilinogen Ur Leukocyte Esterase Urine RBC Urine WBC Urine WBC Clumps Amorphous Sediment Urine Bacteria Hyaline Casts Urine Mucus 07/16/16 07/16/16 07/16/16 19:07 20:14 20:14 WBC RBC Hgb Hct MCV MCH MCHC RDW Plt Count MPV PT 13.4 H INR 1.3 APTT 28.2 Puncture Site pH pCO2 pO2 HCO3 Total CO2 Base Excess FiO2 % Specimen Drawn By Sodium Potassium Chloride Carbon Dioxide Anion Gap BUN Creatinine Estimated GFR (MDRD) Glucose POC Capillary Glucose Hemoglobin A1c Calculated Osmolality Lactic Acid 1.9 Calcium Troponin I 0.11 Ubq-N-Abgixhcygdg Pept Urine Color Urine Clarity Urine pH Ur Specific [place] Urine Protein Urine Glucose (UA) Urine Ketones Urine Occult Blood Urine Nitrite Urine Bilirubin Urine Urobilinogen Ur Leukocyte Esterase Urine RBC Urine WBC Urine WBC Clumps Amorphous Sediment Urine Bacteria Hyaline Casts Urine Mucus 07/16/16 07/16/16 07/16/16 20:18 22:00 23:00 WBC RBC Hgb Hct MCV MCH MCHC RDW Plt Count MPV PT INR APTT Puncture Site pH pCO2 pO2 HCO3 Total CO2 Base Excess FiO2 % Specimen Drawn By Sodium Potassium Chloride Carbon Dioxide Anion Gap BUN Creatinine Estimated GFR (MDRD) Glucose POC Capillary Glucose 165 H Hemoglobin A1c Calculated Osmolality Lactic Acid Calcium Troponin I 0.12 Zrf-Y-Qsueaalgwni Pept Urine Color Dark yellow Urine Clarity Cldy Urine pH 5.0 Ur Specific [place] 1.015 Urine Protein 3+ H Urine Glucose (UA) Neg Urine Ketones 1+ H Urine Occult Blood 1+ H Urine Nitrite Neg Urine Bilirubin Neg Urine Urobilinogen <2.0 Ur Leukocyte Esterase 2+ H Urine RBC 10-20 H Urine WBC 20-30 H Urine WBC Clumps Present H Amorphous Sediment Occ Urine Bacteria Few Hyaline Casts 10-20 H Urine Mucus Occ 07/17/16 07/17/16 07/17/16 01:40 01:40 01:40 WBC 7.9 RBC 3.47 L Hgb 10.5 L Hct 32.3 L MCV 93 MCH 30.4 MCHC 32.7 L RDW 16.1 H Plt Count 218 MPV 8.7 PT INR APTT Puncture Site pH pCO2 pO2 HCO3 Total CO2 Base Excess FiO2 % Specimen Drawn By Sodium 145 Potassium 4.2 Chloride 106 Carbon Dioxide 26 Anion Gap 17 H BUN 66 H Creatinine 4.00 H Estimated GFR (MDRD) 15 L Glucose 115 H POC Capillary Glucose Hemoglobin A1c Calculated Osmolality 299 H Lactic Acid Calcium 8.4 Troponin I 0.13 Qwt-P-Jdfixmoaroa Pept Urine Color Urine Clarity Urine pH Ur Specific [place] Urine Protein Urine Glucose (UA) Urine Ketones Urine Occult Blood Urine Nitrite Urine Bilirubin Urine Urobilinogen Ur Leukocyte Esterase Urine RBC Urine WBC Urine WBC Clumps Amorphous Sediment Urine Bacteria Hyaline Casts Urine Mucus 07/17/16 07/17/16 05:56 11:39 WBC RBC Hgb Hct MCV MCH MCHC RDW Plt Count MPV PT INR APTT Puncture Site pH pCO2 pO2 HCO3 Total CO2 Base Excess FiO2 % Specimen Drawn By Sodium Potassium Chloride Carbon Dioxide Anion Gap BUN Creatinine Estimated GFR (MDRD) Glucose POC Capillary Glucose 111 H 108 H Hemoglobin A1c Calculated Osmolality Lactic Acid Calcium Troponin I Nhf-Y-Hrzygkcqamu Pept Urine Color Urine Clarity Urine pH Ur Specific [place] Urine Protein Urine Glucose (UA) Urine Ketones Urine Occult Blood Urine Nitrite Urine Bilirubin Urine Urobilinogen Ur Leukocyte Esterase Urine RBC Urine WBC Urine WBC Clumps Amorphous Sediment Urine Bacteria Hyaline Casts Urine Mucus - Assessment (1) Acute respiratory failure with hypoxia Acute J96.01 - ACUTE RESPIRATORY FAILURE WITH HYPOXIA Comment/Plan: Likely due to pneumonitis from possible aspiration. Continue current IV antibiotics and supportive care (2) Altered mental status Acute R41.82 - ALTERED MENTAL STATUS, UNSPECIFIED Qualifiers: Altered mental status type: delirium Qualified Code(s): R41.0 - Disorientation, unspecified Comment/Plan: Plan is to try to hydrate the patient. I suspect that he may be somewhat uremic and that may be the cause of his confusion. Will try hydration and see if that helps. If patient does not turnaround then we will pursue hospice services. (3) Aspiration pneumonitis Acute J69.0 - PNEUMONITIS DUE TO INHALATION OF FOOD AND VOMIT Comment/Plan: There is concern for aspiration pneumonitis, given the fact that his mental status is altered, he has been drooling a lot and unable to manage his own secretions in the last couple days. Treating empirically for possible aspiration pneumonia, not seen on x-ray tonight. Will recheck a chest x-ray in 24 hours. (4) Congestive heart failure Active I50.9 - HEART FAILURE, UNSPECIFIED Comment/Plan: Without evidence of trace fluid overload. Patient, in fact, seems dry. (5) Acute on chronic kidney failure Acute N17.9 - ACUTE KIDNEY FAILURE, UNSPECIFIED; N18.9 - CHRONIC KIDNEY DISEASE, UNSPECIFIED Comment/Plan: Avoid nephro toxic agents, consider gentle hydration. Patient also has a history of urinary retention requiring correction cath and f/u w/ urology. (6) CAD (coronary artery disease) Acute I25.10 - ATHSCL HEART DISEASE OF [place] CORONARY ARTERY W/O ANG PCTRS Qualifiers: Coronary Disease-Associated Artery/Lesion type: [place] artery [place] vs. transplanted heart: [place] heart Associated angina: without angina Qualified Code(s): I25.10 - Atherosclerotic heart disease of [place] coronary artery without angina pectoris Comment/Plan: Noted continue medical management (7) Demand ischemia Acute I24.8 - OTHER FORMS OF ACUTE ISCHEMIC HEART DISEASE Comment/Plan: Noted on admission troponin up to > 1. (8) Atrial fibrillation Chronic I48.91 - UNSPECIFIED ATRIAL FIBRILLATION Qualifiers: Comment/Plan: He is rate controlled on beta-deidre. Not a candidate for anticoagulation due to prior hemorrhagic stroke. This is a recent diagnosis. 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 Could consider increasing Keppra dosing if seizures continue. - Plan Will try some hydration today and see if the patient perked up a little. Disposition Plan: Hopefully back to skilled facility Case Care Discussed with: Patient Education/Counseling Given To: Patient Education/Counseling Given Regarding: Diagnosis, Treatment, Prognosis, Follow Up , Disposition Plan Total Time: 45 minutes Critical Care: No Couseling Time (>50% in counseling/coordination): No
[2016-07-17] MEDS ORDERED: NS 1,000 ML IV ONE (15:51)
[2016-07-17] MEDS: ENOXAPARIN 30 MG/0.3 ML PFS SQ SCH (17:05)
[2016-07-17] MEDS: NS 1,000 ML IV SCH ×3 (17:05→22:09)
[2016-07-17] MEDS: GABAPENTIN 300 MG CAP PO SCH (21:58)
[2016-07-17] MEDS: PANTOPRAZOLE 40 MG VIAL IV SCH (21:58)
[2016-07-17] MEDS: GLARGINE INSULIN (LANTUS) 100 UNITS/ML PEN SQ SCH (22:09)
[2016-07-18] MEDS: METOPROLOL 5 MG/5 ML SDV IV SCH ×5 (00:52→23:37)
[2016-07-18] MEDS: hydrALAZINE 20 MG/ML VIAL IV SCH ×5 (00:52→23:37)
[2016-07-18] MEDS: NS 1,000 ML IV SCH ×3 (01:44→23:32)
[2016-07-18] MEDS: Clindamycin 600 mg/D5W 50 ml 600 MG/50 ML IVB IV SCH ×4 (02:59→19:45)
[2016-07-18] MEDS: REGULAR INSULIN 100 UNITS/ML - 3 ML VIAL SQ SCH ×4 (06:01→21:12)
[2016-07-18] MEDS: NITROGLYCERINE 2 % OINTMENT PACK TOP SCH ×3 (06:46→18:11)
[2016-07-18 07:10] LABS: MPV 9.2 fL (7.4-10.4)
[2016-07-18 07:25] LABS: BLOOD UREA NITROGEN 68 MG/DL (9-20); CALCIUM 8.4 MG/DL (8.4-10.2); CALCULATED OSMOLALITY 303 MOs/Kg (270-290); CHLORIDE 112 mEq/L (98-107); GLUCOSE 116 mg/dL (70-99); SODIUM LEVEL 147 mEq/L (137-146)
[2016-07-18] MEDS ORDERED: VARIBAR NECTAR 40% BARIUM 240 ML ONE (10:55)
[2016-07-18] MEDS ORDERED: VARIBAR HONEY 40% BARIUM 250 ML ONE (10:55)
[2016-07-18] MEDS ORDERED: VARIBAR THIN 40% BARIUM 250 ML ONE (10:55)
[2016-07-18] MEDS: LORAZEPAM 2 MG/ML VIAL IV PRN ×2 (11:28→17:20)
--- NOTE | 2016-07-18 17:31 | GENMEDPROG ---
Subjective Note: Patient did not respond to my verbal cues today but he has been speaking with his daughter. He is waking up some. His renal function is worse today which is very concerning. Notes Reviewed: Yes: Events from last night noted and discussed with Clinical Staff Current Medication List: Reviewed Currently: Reports: SOB, Old Charts Reviewd. Denies: Sputum, Diarrhea, Nausea and Vomiting, Reflux Sx, Abdominal Pain, Ambulating DVT Prophylaxis: Yes - Physical Examination Vital Signs and I&O: Last Vital Signs Temp 98.3 F 07/18/16 13:35 Pulse 118 07/18/16 13:35 Resp 20 07/18/16 13:35 BP 118/69 07/18/16 13:35 Pulse Ox 96 07/18/16 13:35 Oxygen Pulse Oxygen Saturation 96 O2 Device Nasal Cannula Oxygen Flow Rate 4 Fraction of Inspired Oxygen ( 3 FIO2) Intake & Output 07/15/16 07/16/16 07/17/16 07/18/16 23:59 23:59 23:59 23:59 Intake Total 150 1551 1968 Output Total 330 510 Balance 150 1221 1458 Patient's weight 93.621 kg 93.848 kg General: Fatigue. negative: Alert, Oriented x3 HEENT: Normal (Normocephalic, atraumatic;EOMI.Sclera white, Nares patent, without discharge or bleeding. No oropharyngeal lesions or erythema. Mucous membranes are dry.) Neck: Non-tender, Full range of motion, Normal Trachea alignment, Normal inspection (No cervical lymphadenopathy. No supraclavicular lymphadenopathy.), No Masses palpable, Supple Lymphatics: Normal (No lymph node swelling or pain.) Respiratory: Normal - CTA. negative: Rales, Retractions, Rhonchi, Wheezes Cardiovascular: Regular rate and rhythm (No bradycardia or tachycardia), Normal S1, No Gallops,Rubs/Murmurs, Normal S2, Good Pedal Pulses (DP pulses 2+ bilaterally) GI: Normal bowel sounds (normal active sounds), Soft (non-distended), Non tender , No hepatospenomegaly, No masses Extremities/Musculoskeletal: Normal pulses (DP pulses 2+ bilaterally) Skin: Warm,Dry and Intact Neurological: Strength at 5/5 X4 ext (Motor 5/5 throughout.), Normal tone, Cranial nerves 3-12 NL ( 2-12 grossly intact.) Psych/Mental Status: Appropriate, Normal Affect - Assessment (1) Acute respiratory failure with hypoxia Acute J96.01 - ACUTE RESPIRATORY FAILURE WITH HYPOXIA Comment/Plan: Likely due to pneumonitis from possible aspiration. Continue current IV antibiotics and supportive care. Patient improving a little bit but not much. (2) Altered mental status Acute R41.82 - ALTERED MENTAL STATUS, UNSPECIFIED Qualifiers: Altered mental status type: delirium Qualified Code(s): R41.0 - Disorientation, unspecified Comment/Plan: I discuss further testing with the daughter she does not wish to pursue that. She requests continued IV fluid for the next 24 hours. (3) Aspiration pneumonitis Acute J69.0 - PNEUMONITIS DUE TO INHALATION OF FOOD AND VOMIT Comment/Plan: Continue antibiotics now. Daughter not interested in repeat chest x-ray based on my discussion with her about CT scan of the head. (4) Congestive heart failure Active I50.9 - HEART FAILURE, UNSPECIFIED Comment/Plan: Without evidence of trace fluid overload. Patient, in fact, seems dry. (5) Acute on chronic kidney failure Acute N17.9 - ACUTE KIDNEY FAILURE, UNSPECIFIED; N18.9 - CHRONIC KIDNEY DISEASE, UNSPECIFIED Comment/Plan: Avoid nephro toxic agents, consider gentle hydration. 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 (6) CAD (coronary artery disease) Acute I25.10 - ATHSCL HEART DISEASE OF [place] CORONARY ARTERY W/O ANG PCTRS Qualifiers: Coronary Disease-Associated Artery/Lesion type: [place] artery [place] vs. transplanted heart: [place] heart Associated angina: without angina Qualified Code(s): I25.10 - Atherosclerotic heart disease of [place] coronary artery without angina pectoris Comment/Plan: Noted continue medical management (7) Demand ischemia Acute I24.8 - OTHER FORMS OF ACUTE ISCHEMIC HEART DISEASE Comment/Plan: Noted on admission troponin up to > 1. (8) Atrial fibrillation Chronic I48.91 - UNSPECIFIED ATRIAL FIBRILLATION Qualifiers: Comment/Plan: He is rate controlled on beta-deidre. Not a candidate for anticoagulation due to prior hemorrhagic stroke. This is a recent diagnosis. 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 Could consider increasing Keppra dosing if seizures continue. (10) Cholelithiasis Acute K80.20 - CALCULUS OF GALLBLADDER W/O CHOLECYSTITIS W/O OBSTRUCTION Qualifiers: Cholelithiasis location: gallbladder Cholecystitis presence: without cholecystitis Biliary obstruction: without biliary obstruction Qualified Code(s): K80.20 - Calculus of gallbladder without cholecystitis without obstruction Comment/Plan: Patient with a very poor functioning gallbladder on nuclear medicine gallbladder scan. His EF was only 38%. Will place a cholecystostomy tube to assist with drainage of the gallbladder in a.m.. Patient has had significant amounts of nausea and vomiting which have been very uncomfortable for him. The purpose of the gallbladder tube placement is for palliative and comfort care. - Plan Will try some hydration today and see if the patient perked up a little. Disposition Plan: Possibly to hospice in a.m. Case Care Discussed with: Family, Nursing Staff Education/Counseling Given To: Family Member Education/Counseling Given Regarding: Diagnosis, Treatment, Prognosis, Follow Up , Disposition Plan Total Time: 45 minutes Critical Care: No Couseling Time (>50% in counseling/coordination): No
[2016-07-18] MEDS: ENOXAPARIN 30 MG/0.3 ML PFS SQ SCH (18:09)
[2016-07-18] MEDS ORDERED: Levofloxacin 500 mg/100 ml D5W 500 MG/100 ML RTU IV SCH (20:00)
[2016-07-18] MEDS: GLARGINE INSULIN (LANTUS) 100 UNITS/ML PEN SQ SCH (21:11)
[2016-07-18] MEDS: PANTOPRAZOLE 40 MG VIAL IV SCH (21:36)
[2016-07-19] MEDS: Clindamycin 600 mg/D5W 50 ml 600 MG/50 ML IVB IV SCH ×3 (01:34→14:51)
[2016-07-19] MEDS: METOPROLOL 5 MG/5 ML SDV IV SCH ×2 (05:52→11:23)
[2016-07-19] MEDS: NITROGLYCERINE 2 % OINTMENT PACK TOP SCH ×2 (05:52→11:24)
[2016-07-19] MEDS: hydrALAZINE 20 MG/ML VIAL IV SCH ×2 (05:52→11:24)
[2016-07-19] MEDS: REGULAR INSULIN 100 UNITS/ML - 3 ML VIAL SQ SCH ×3 (06:16→18:35)
[2016-07-19 07:11] LABS: MPV 9.1 fL (7.4-10.4)
[2016-07-19 07:16] LABS: BLOOD UREA NITROGEN 72 MG/DL (9-20); CALCIUM 8.4 MG/DL (8.4-10.2); CALCULATED OSMOLALITY 307 MOs/Kg (270-290); CHLORIDE 111 mEq/L (98-107); GLUCOSE 178 mg/dL (70-99); SODIUM LEVEL 147 mEq/L (137-146)
[2016-07-19] MEDS: LORAZEPAM 2 MG/ML VIAL IV PRN ×2 (07:19→14:50)
[2016-07-19] MEDS: NS 1,000 ML IV SCH ×2 (08:33→14:29)
[2016-07-19] MEDS ORDERED: IODINE IV ONE (08:43)
[2016-07-19] MEDS ORDERED: IODIXANOL IV ONE (08:43)
[2016-07-19] MEDS ORDERED: [UNRECOGNIZED DRUG - OTHER] IV ONE (08:43)
[2016-07-19] MEDS ORDERED: LIDOCAINE 1% 30 ML VIAL (PRESERVATIVE FREE) ONE (08:43)
[2016-07-19] MEDS ORDERED: FENTANYL 100 MCG/2 ML VIAL ONE (08:49)
[2016-07-19] MEDS ORDERED: MIDAZOLAM 2 MG/2 ML VIAL ONE (08:49)
--- NOTE | 2016-07-19 09:07 | GENMEDPROG ---
Subjective Note: For cholecystostomy tube placement today. Currently: Reports: SOB, Old Charts Reviewd. Denies: Sputum, Diarrhea, Nausea and Vomiting, Reflux Sx, Abdominal Pain, Ambulating DVT Prophylaxis: Yes - Physical Examination Vital Signs and I&O: Last Vital Signs Temp 98.1 F 07/19/16 05:47 Pulse 112 07/19/16 07:44 Resp 20 07/19/16 05:47 BP 134/79 07/19/16 05:47 Pulse Ox 94 07/19/16 05:47 Oxygen Pulse Oxygen Saturation 94 O2 Device Nasal Cannula Oxygen Flow Rate 4 Fraction of Inspired Oxygen ( 3 FIO2) Intake & Output 07/16/16 07/17/16 07/18/16 07/19/16 23:59 23:59 23:59 23:59 Intake Total 150 1551 3325 Output Total 330 720 175 Balance 150 1221 2605 -175 Patient's weight 93.621 kg 93.848 kg 94.999 kg General: Fatigue. negative: Alert, Oriented x3 HEENT: Normal (Normocephalic, atraumatic;EOMI.Sclera white, Nares patent, without discharge or bleeding. No oropharyngeal lesions or erythema. Mucous membranes are dry.) Neck: Non-tender, Full range of motion, Normal Trachea alignment, Normal inspection (No cervical lymphadenopathy. No supraclavicular lymphadenopathy.), No Masses palpable, Supple Lymphatics: Normal (No lymph node swelling or pain.) Respiratory: Normal - CTA. negative: Rales, Retractions, Rhonchi, Wheezes Cardiovascular: Regular rate and rhythm (No bradycardia or tachycardia), Normal S1, No Gallops,Rubs/Murmurs, Normal S2, Good Pedal Pulses (DP pulses 2+ bilaterally) GI: Normal bowel sounds (normal active sounds), Soft (non-distended), Non tender , No hepatospenomegaly, No masses Extremities/Musculoskeletal: Normal pulses (DP pulses 2+ bilaterally) Skin: Warm,Dry and Intact Neurological: Strength at 5/5 X4 ext (Motor 5/5 throughout.), Normal tone, Cranial nerves 3-12 NL ( 2-12 grossly intact.) Psych/Mental Status: Appropriate, Normal Affect Lab/DI/Studies Reviewed: Laboratory Results - last 24 hr 07/18/16 07/18/16 07/18/16 11:25 16:28 20:17 WBC RBC Hgb Hct MCV MCH MCHC RDW Plt Count MPV Sodium Potassium Chloride Carbon Dioxide Anion Gap BUN Creatinine Estimated GFR (MDRD) Glucose POC Capillary Glucose 138 H 144 H 222 H Calculated Osmolality Calcium Magnesium 07/19/16 07/19/16 07/19/16 05:15 05:15 06:15 WBC 7.8 RBC 3.57 L Hgb 10.8 L Hct 33.5 L MCV 94 MCH 30.2 MCHC 32.3 L RDW 16.5 H Plt Count 235 MPV 9.1 Sodium 147 H Potassium 3.9 Chloride 111 H Carbon Dioxide 21 L Anion Gap 19 H BUN 72 H Creatinine 3.90 H Estimated GFR (MDRD) 15 L Glucose 178 H POC Capillary Glucose 175 H Calculated Osmolality 307 H Calcium 8.4 Magnesium 2.80 H - Assessment (1) Acute respiratory failure with hypoxia Acute J96.01 - ACUTE RESPIRATORY FAILURE WITH HYPOXIA Comment/Plan: Likely due to pneumonitis from possible aspiration. Continue current IV antibiotics and supportive care. Patient improving a little bit but not much. (2) Altered mental status Acute R41.82 - ALTERED MENTAL STATUS, UNSPECIFIED Qualifiers: Altered mental status type: delirium Qualified Code(s): R41.0 - Disorientation, unspecified Comment/Plan: I discuss further testing with the daughter she does not wish to pursue that. She requests continued IV fluid for the next 24 hours. (3) Aspiration pneumonitis Acute J69.0 - PNEUMONITIS DUE TO INHALATION OF FOOD AND VOMIT Comment/Plan: Continue antibiotics now. Daughter not interested in repeat chest x-ray based on my discussion with her about CT scan of the head. (4) Congestive heart failure Active I50.9 - HEART FAILURE, UNSPECIFIED Comment/Plan: Without evidence of trace fluid overload. Patient, in fact, seems dry. (5) Acute on chronic kidney failure Acute N17.9 - ACUTE KIDNEY FAILURE, UNSPECIFIED; N18.9 - CHRONIC KIDNEY DISEASE, UNSPECIFIED Comment/Plan: Avoid nephro toxic agents, consider gentle hydration. Patient also has a history of urinary retention requiring detention cath and f/u w/ urology. (6) CAD (coronary artery disease) Acute I25.10 - ATHSCL HEART DISEASE OF [place] CORONARY ARTERY W/O ANG PCTRS Qualifiers: Coronary Disease-Associated Artery/Lesion type: [place] artery [place] vs. transplanted heart: [place] heart Associated angina: without angina Qualified Code(s): I25.10 - Atherosclerotic heart disease of [place] coronary artery without angina pectoris Comment/Plan: Noted continue medical management (7) Demand ischemia Acute I24.8 - OTHER FORMS OF ACUTE ISCHEMIC HEART DISEASE Comment/Plan: Noted on admission troponin up to > 1. (8) Atrial fibrillation Chronic I48.91 - UNSPECIFIED ATRIAL FIBRILLATION Qualifiers: Comment/Plan: He is rate controlled on beta-deidre. Not a candidate for anticoagulation due to prior hemorrhagic stroke. This is a recent diagnosis. 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 Could consider increasing Keppra dosing if seizures continue. (10) Cholelithiasis Acute K80.20 - CALCULUS OF GALLBLADDER W/O CHOLECYSTITIS W/O OBSTRUCTION Qualifiers: Cholelithiasis location: gallbladder Cholecystitis presence: without cholecystitis Biliary obstruction: without biliary obstruction Qualified Code(s): K80.20 - Calculus of gallbladder without cholecystitis without obstruction Comment/Plan: Patient with a very poor functioning gallbladder on nuclear medicine gallbladder scan. His EF was only 38%. Will place a cholecystostomy tube to assist with drainage of the gallbladder in a.m.. Patient has had significant amounts of nausea and vomiting which have been very uncomfortable for him. The purpose of the gallbladder tube placement is for palliative and comfort care. - Plan Will try some hydration today and see if the patient perked up a little. Disposition Plan: Possibly to hospice in a.m. Case Care Discussed with: Family, Nursing Staff Education/Counseling Given To: Patient, Family Member Education/Counseling Given Regarding: Diagnosis, Treatment, Prognosis Total Time: 45 minutes
[2016-07-19 14:30] VITALS: TEMP 97.6
--- NOTE | 2016-07-19 14:42 | DIRPT ---
CLINICAL DATA: 81-year-old male with nausea and vomiting. Initial encounter. EXAM: US ABDOMEN LIMITED - RIGHT UPPER QUADRANT COMPARISON: Nuclear medicine hepato biliary scan 07/13/2016. Right upper quadrant ultrasound 12/02/2015. CT Abdomen and Pelvis 12/02/2015. FINDINGS: Gallbladder: Distended gallbladder with wall thickening up to 8 mm, but no intraluminal sludge or stones. The gallbladder distention today is similar to that on the 2016 CT Abdomen and Pelvis. Locomotive Mechanic reports positive sonographic Chou sign. No pericholecystic fluid. Common bile duct: Diameter: 4 mm, normal Liver: Liver echogenicity appears within normal limits. No intrahepatic biliary ductal dilatation or discrete liver lesion. Other findings: Right pleural effusion is visible. IMPRESSION: 1. Hydropic gallbladder, but similar in appearance to 2016 CT Abdomen and Pelvis. Gallbladder wall thickening and report of positive sonographic Chou sign, however, the cystic duct and CBD were recently demonstrated to be patent by HIDA scan 6 days ago. A repeat HIDA may be most valuable at this point. 2. No evidence of biliary obstruction. 3. Right pleural effusion. Electronically Signed By: Geremias Lynch M.D. On: 07/19/2016 14:40
[2016-07-19] MEDS ORDERED: MORPHINE 2 MG/ML INJECTION ONE (14:58)
[2016-07-19] MEDS ORDERED: FUROSEMIDE 40 MG/4 ML VIAL IV ONE (15:00)
[2016-07-19 15:02] VITALS: BMI 28.4
[2016-07-19] MEDS: MORPHINE 2 MG/ML INJECTION IV PRN (15:08)
[2016-07-19] MEDS: OXYCODONE HCL 5 MG TABLET PO SCH ×2 (15:27→21:25)
[2016-07-19] MEDS: LEVETIRACETAM 100 MG/ML ORAL SOLN PO SCH (21:23)
[2016-07-19] MEDS: FUROSEMIDE 80 MG TAB PO SCH (21:23)
[2016-07-19] MEDS: GLARGINE INSULIN (LANTUS) 100 UNITS/ML PEN SQ SCH (21:23)
[2016-07-19] MEDS: hydrALAZINE 25 MG TAB PO SCH (21:24)
[2016-07-19] MEDS: GABAPENTIN 300 MG CAP PO SCH (21:24)
[2016-07-19] MEDS: PANTOPRAZOLE 40 MG VIAL IV SCH (21:25)
[2016-07-20] MEDS: OXYCODONE HCL 5 MG TABLET PO SCH ×2 (04:03→09:06)
[2016-07-20 06:39] VITALS: BP 123/75; PULSE 94; TEMP 98.4
[2016-07-20] MEDS: hydrALAZINE 25 MG TAB PO SCH (06:45)
[2016-07-20] MEDS: ISOSORBIDE MONONITRATE 30 MG TAB PO SCH (06:45)
[2016-07-20] MEDS: FUROSEMIDE 80 MG TAB PO SCH (09:06)
[2016-07-20] MEDS: LEVETIRACETAM 100 MG/ML ORAL SOLN PO SCH (09:06)
[2016-07-20] MEDS: LORAZEPAM 2 MG/ML VIAL IV PRN (09:43)
[2016-07-20] MEDS: MORPHINE 2 MG/ML INJECTION IV PRN ×2 (09:43→12:13)
--- NOTE | 2016-07-20 10:01 | PCM.DCS92 ---
- Final/Secondary Discharge Diagnosis (1) Acute respiratory failure with hypoxia Acute J96.01 - ACUTE RESPIRATORY FAILURE WITH HYPOXIA Comment: Likely due to pneumonitis from possible aspiration. Continue current IV antibiotics and supportive care. Patient improving a little bit but not much. (2) Altered mental status Acute R41.82 - ALTERED MENTAL STATUS, UNSPECIFIED delirium R41.0 - Disorientation, unspecified Comment: I discuss further testing with the daughter she does not wish to pursue that. She requests continued IV fluid for the next 24 hours. (3) Aspiration pneumonitis Acute J69.0 - PNEUMONITIS DUE TO INHALATION OF FOOD AND VOMIT Comment: Continue antibiotics now. Daughter not interested in repeat chest x-ray based on my discussion with her about CT scan of the head. (4) Congestive heart failure Active I50.9 - HEART FAILURE, UNSPECIFIED Comment: Without evidence of trace fluid overload. Patient, in fact, seems dry. (5) Acute on chronic kidney failure Acute N17.9 - ACUTE KIDNEY FAILURE, UNSPECIFIED; N18.9 - CHRONIC KIDNEY DISEASE, UNSPECIFIED Comment: Avoid nephro toxic agents, consider gentle hydration. Patient also has a history of urinary retention requiring jail cath and f/u w/ urology. (6) CAD (coronary artery disease) Acute I25.10 - ATHSCL HEART DISEASE OF [place] CORONARY ARTERY W/O ANG PCTRS [place] artery [place] heart without angina I25.10 - Atherosclerotic heart disease of [place] coronary artery without angina pectoris Comment: Noted continue medical management (7) Demand ischemia Acute I24.8 - OTHER FORMS OF ACUTE ISCHEMIC HEART DISEASE Comment: Noted on admission troponin up to > 1. (8) Atrial fibrillation Chronic I48.91 - UNSPECIFIED ATRIAL FIBRILLATION Comment: He is rate controlled on beta-deidre. Not a candidate for anticoagulation due to prior hemorrhagic stroke. This is a recent diagnosis. 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 Could consider increasing Keppra dosing if seizures continue. (10) Cholelithiasis Acute K80.20 - CALCULUS OF GALLBLADDER W/O CHOLECYSTITIS W/O OBSTRUCTION gallbladder without cholecystitis without biliary obstruction K80.20 - Calculus of gallbladder without cholecystitis without obstruction Comment: Patient was unable to have gallbladder tube placement due the fact that there were stones and not liquids in the gallbladder. Family has opted for no further invasive treatment of the gallbladder. We are working on symptomatic medications. Discharge Disposition: Hospice Care Inpatient Discharge Condition: Serious Cognitive Discharge Status: Unable to communicate needs Fuctional Discharge Status: Total Assistance Required Home Medications / New Prescriptions: No Action Finasteride [Proscar] 5 mg PO DAILY Tamsulosin HCl [Flomax] 0.4 mg PO BID Insulin Glargine,Hum.rec.anlog [Lantus] 45 units SQ HS HydrALAZINE (Cardiovascular) [Apresoline] 25 mg PO TID Furosemide [Lasix] 80 mg PO BID Colchicine [Colcrys] 0.3 mg PO DAILY Allopurinol [Zyloprim] 100 mg PO BID Gabapentin [Neurontin] 600 mg PO QHS Levetiracetam [Keppra] 500 mg PO BID 30 Days Lorazepam [Lorazepam Intensol] 2 mg PO Q4H PRN PRN Reason: Seizure Activity Cyclobenzaprine HCl [Flexeril] 10 mg PO Q6H PRN PRN Reason: Pain Butalbital/Acetaminophen [Bupap 50 mg-300 mg Tablet] 1 - 2 tab PO Q4H PRN PRN Reason: Pain Isosorbide Mononitrate [Imdur] 30 mg PO DAILY@0600 #30 tablet Diltiazem HCl [Diltiazem 24Hr ER] 240 mg PO DAILY Famotidine 20 mg PO DAILY Cholecalciferol (Vitamin D3) [Vitamin D3] 1,000 unit PO DAILY Cetirizine HCl 10 mg PO DAILY Bethanechol Chloride 50 mg PO BID Lorazepam [Lorazepam Intensol] 0.5 mg PO Q4H PRN PRN Reason: Nausea Albuterol/Ipratropium Neb [Duoneb] 3 ml NEB Q4H PRN PRN Reason: Shortness Of Breath Oxycodone Immediate Release [Oxycodone Immediate Release (OxyIR)] 10 mg PO Q6H Nitroglycerin Sublingual Tab [NTG (NitroStat Sublingual Tab)] 0.4 mg SL Q5MX3 PRN PRN Reason: Chest Pain Or Discomfort Simvastatin [Zocor] 40 mg PO .QHS SEE COMMENTS Insulin Lispro [Humalog] 0 units SQ .TIDAC SLIDING SCALE Medications Bethanechol Chloride (Urecholine) 50 mg PO BID [facility] Stop: 07/31/16 08:59 Last Admin: 07/17/16 08:54 Dose: Diltiazem HCl (Cardizem Cd) 240 mg PO DAILY [facility] Stop: 08/02/16 14:59 Last Admin: 07/20/16 09:06 Dose: 240 mg Furosemide (Lasix) 80 mg PO BID JENY Stop: 08/02/16 20:59 Last Admin: 07/20/16 09:06 Dose: 80 mg Gabapentin (Neurontin) 600 mg PO QHS JENY Stop: 07/31/16 20:59 Last Admin: 07/19/16 21:24 Dose: 600 mg Hydralazine HCl (Apresoline) 25 mg PO TID [facility] Stop: 07/30/16 20:59 Last Admin: 07/20/16 06:45 Dose: 25 mg Insulin Glargine (Lantus Pen) 20 units SQ QHS [facility] Stop: 07/31/16 20:59 Last Admin: 07/19/16 21:23 Dose: Isosorbide Mononitrate (Imdur) 30 mg PO DAILY@0600 [facility] Stop: 07/31/16 05:59 Last Admin: 07/20/16 06:45 Dose: 30 mg Levetiracetam (Keppra) 500 mg PO BID [facility] Stop: 08/02/16 20:59 Last Admin: 07/20/16 09:06 Dose: 500 mg Lorazepam (Ativan) 0.5 mg IV Q6H PRN PRN Reason: Anxiety or Agitation Stop: 07/31/16 16:59 Last Admin: 07/20/16 09:43 Dose: 0.5 mg Morphine Sulfate (Morphine Sulfate) 2 mg IV Q1H PRN PRN Reason: Dyspnea Stop: 07/26/16 16:59 Last Admin: 07/20/16 09:43 Dose: 2 mg Oxycodone HCl (Oxycodone Immediate Release (Oxyir)) 10 mg PO Q6H [facility] Stop: 07/26/16 14:59 Last Admin: 07/20/16 09:06 Dose: 10 mg Pantoprazole Sodium (Protonix) 40 mg IV Q24H [facility] Stop: 07/21/16 23:30 Last Admin: 07/19/16 21:25 Dose: 40 mg Discontinued Medications Enoxaparin Sodium (Lovenox) 30 mg SQ 1800 [facility] Stop: 07/30/16 22:59 Last Admin: 07/18/16 18:09 Dose: Not Given Non-Admin Reason: Refused Furosemide (Lasix) 20 mg IV LASBID [facility] Stop: 07/30/16 16:59 Last Admin: 07/17/16 15:50 Dose: 20 mg Furosemide (Lasix) 40 mg IV NOW ONE Stop: 07/19/16 15:01 Last Admin: 07/19/16 15:27 Dose: 40 mg Hydralazine HCl (Apresoline) 10 mg IV Q6 [facility] Stop: 07/31/16 16:59 Last Admin: 07/19/16 11:24 Dose: 10 mg Clindamycin HCl/Dextrose (Cleocin 900 Mg/50 Ml D5w) 900 mg in 50 mls @ 100 mls/ hr IV NOW ONE Stop: 07/16/16 18:42 Last Admin: 07/16/16 19:23 Dose: 100 mls/hr Levofloxacin/Dextrose (Levaquin 750 Mg) 750 mg in 150 mls @ 100 mls/hr IV NOW ONE Stop: 07/16/16 19:41 Last Admin: 07/16/16 20:06 Dose: 100 mls/hr Clindamycin HCl/Dextrose (Cleocin 600 Mg/50 Ml D5w) 600 mg in 50 mls @ 150 mls/ hr IV Q6H [facility] Stop: 07/24/16 01:59 Last Admin: 07/19/16 14:51 Dose: 150 mls/hr Levofloxacin/Dextrose (Levaquin 500 Mg) 500 mg in 100 mls @ 100 mls/hr IV Q48H [facility] Stop: 07/25/16 19:59 Last Admin: 07/18/16 20:53 Dose: 100 mls/hr Sodium Chloride (Normal Saline) Confirm Administered Dose 250 mls @ ud IV .STK- MED ONE Stop: 07/16/16 22:11 Last Admin: 07/16/16 22:20 Dose: Sodium Chloride (Normal Saline) Confirm Administered Dose 250 mls @ ud IV .STK- MED ONE Stop: 07/16/16 22:11 Last Admin: 07/16/16 22:19 Dose: 250 ml Levetiracetam (Keppra 500 Mg) 100 mls @ 200 mls/hr IV Q12H [facility] Stop: 07/31/16 11:59 Last Admin: 07/19/16 11:23 Dose: 200 mls/hr Sodium Chloride (Normal Saline) 1,000 mls @ 0 mls/hr IV .Bolus IVF X 1 liter ONE PRN Reason: Wide Open Stop: 07/17/16 15:52 Last Admin: 07/17/16 15:52 Dose: 500 mls/hr Sodium Chloride (Normal Saline) 1,000 mls @ 150 mls/hr IV Q6H [facility] Stop: 07/18/16 03:59 Last Admin: 07/18/16 01:44 Dose: 150 mls/hr Sodium Chloride (Normal Saline) 1,000 mls @ 125 mls/hr IV Q24H [facility] Stop: 08/01/16 16:59 Last Admin: 07/19/16 14:29 Dose: Not Given Non-Admin Reason: Fluids still infusing Insulin Human Regular (Humulin R) 0 units SQ ACHS JENY PRN Reason: Protocol Stop: 07/30/16 16:59 Last Admin: 07/19/16 18:35 Dose: Metoprolol Tartrate (Lopressor) 2.5 mg IV Q6H [facility] Stop: 07/31/16 11:59 Last Admin: 07/19/16 11:23 Dose: 2.5 mg Morphine Sulfate (Morphine Sulfate) Confirm Administered Dose 2 mg .ROUTE .STK- MED [facility] Stop: 07/19/16 14:59 Last Admin: 07/19/16 15:04 Dose: Nitroglycerin (Ntg Paste (Nitropaste)) 1 inch TOP 0600,1200,1800 [facility] Stop: 07/31/16 16:59 Last Admin: 07/19/16 11:24 Dose: 1 inch O2 Device: Nasal Cannula Oxygen Flow Rate: 2 Oxygen to be used after Discharge: Continuous Diet at Discharge: As Tolerated, Low Fat, [place] Activity: As Tolerated - DC Summary Notes Hospital Course Note:: Discharge summary on patient named BRETT LINDO admitted to [facility] on 07/16/16 by James Ghosh MD. Date of discharge is []. 81-year-old gentleman admitted to our facility with a history of nausea and vomiting. He also had metabolic encephalopathy renal failure an aspiration pneumonitis. He has a history of acute on chronic kidney failure coronary artery disease in atrial fibrillation. He takes medications daily for seizure control. He had a significant decline in his function due to having had multiple episodes of nausea vomiting and likely had an aspiration pneumonitis. He was dehydrated on admission came in was hydrated and then had significant problems with nausea vomiting. We had considered placing a T-tube but it would not help with his problem as there was no fluid in or around the gallbladder. Given the patient's significant recent decline and probable recent acute CVA given his presentation daughter requested hospice care. She had refused further evaluation for suspected CVA. Hospice was consulted and the patient has been accepted for transfer to the [facility] today. Code: 13752 (>30min.) - Physical Exam Vital Signs: Last Vital Signs Temp 98.4 F 07/20/16 06:00 Pulse 94 07/20/16 06:00 Resp 18 07/20/16 06:00 BP 123/75 07/20/16 06:00 Pulse Ox 93 07/20/16 08:29 Oxygen Pulse Oxygen Saturation 93 O2 Device Nasal Cannula Oxygen Flow Rate 4 Fraction of Inspired Oxygen ( 3 FIO2) Constitutional: Confused. negative: Agitated, Well appearing Oriented to: Time, Person, Place - HEENT Head: Normal Eye: Normal (pupils equal, reactive to light, and round; EOMI, Sclera white) Oropharynx: Normal (Pharynx: Moist without exudate,Gums-no swelling, No oropharyngeal lesions or erythema, Mucous membranes are dry.) Nose: No Symptoms Reported (Nares patent, without discharge or bleeding.) - Respiratory/Cardiovascular Respiratory: Normal - CTA. negative: Rales, Retractions, Rhonchi, Wheezes Cardiovascular: Normal (RRR , Normal S1, S2. No murmurs, rubs, or gallops. PMI non-displaced. Carotids: no carotid bruits. No bradycardia or tachycardia. DP pulses 2+ bilaterally.) - GI Auscultation: Normal (normal active sounds) Palpation: Normal (soft, non distended and nontender) Tenderness: Mild, RUQ, Epigastric Chou's Sign: Positive - Musculoskeletal Back: Normal (Non-Tender) Extremities: Normal - Integumentary Skin: Normal (Warm dry no rashes) Lymphatics: Normal (No lymph node swelling or pain.) - Neurologic Memory Impaired: Unable to Test Motor Function: Unable to Test Cranial Nerve: Unable to Test Cerebellar: Unable to Test - Other Exam Other Exam Findings: Laboratory Results - last 24 hr 07/19/16 07/19/16 11:14 16:27 POC Capillary Glucose 158 H 235 H
== END 2016-07-20 13:07 | disposition hospice, home (50) | DRG 177 ==
LOC: ED 17:30 → MPS3 20:52
PROVIDERS: ADMIT Internal Medicine; ATTEND Hospitalist
PROC: 4A033R1 Measurement of Arterial Saturation, Peripheral, Percutaneous Approach (ICD-10-PCS; principal; 2016-07-16)
DX: J69.0 Pneumonitis due to inhalation of food and vomit (principal); J96.01 Acute respiratory failure with hypoxia; N17.9 Acute kidney failure, unspecified; G93.41 Metabolic encephalopathy; I50.9 Heart failure, unspecified; E86.0 Dehydration; I13.0 Hypertensive heart and chronic kidney disease with heart failure and stage 1 through stage 4 chronic kidney disease, or unspecified chronic kidney disease; I24.8 Other forms of acute ischemic heart disease; I48.91 Unspecified atrial fibrillation; I42.9 Cardiomyopathy, unspecified; F03.90 Unspecified dementia, unspecified severity, without behavioral disturbance, psychotic disturbance, mood disturbance, and anxiety; Z51.5 Encounter for palliative care; N18.9 Chronic kidney disease, unspecified; E78.00 Pure hypercholesterolemia, unspecified; I25.10 Atherosclerotic heart disease of native coronary artery without angina pectoris; K21.9 Gastro-esophageal reflux disease without esophagitis; N40.0 Benign prostatic hyperplasia without lower urinary tract symptoms; M10.9 Gout, unspecified; R56.9 Unspecified convulsions; K80.20 Calculus of gallbladder without cholecystitis without obstruction; I25.2 Old myocardial infarction; Z86.73 Personal history of transient ischemic attack (TIA), and cerebral infarction without residual deficits; Z87.440 Personal history of urinary (tract) infections; Z95.1 Presence of aortocoronary bypass graft; Z95.810 Presence of automatic (implantable) cardiac defibrillator; Z79.4 Long term (current) use of insulin; Z88.0 Allergy status to penicillin
CPT/HCPCS: 36415; 36600; 70450; 71010; 76705; 80048; 81001; 82803; 82962; 83036; 83605; 83735; 83880; 84484; 85027; 85610; 85730; 87040; 87086; 93005; 96365; 96366; 96372; 99284; C1729; J0360; J1650; J1940; J1953; J1956; J2001; J2060; J2250; J2270; J2405; J3010; J3490; Q9967; S0077; S0164